=== PATIENT | male | born 1945 | race Caucasian/White ===

== ENCOUNTER 2018-04-07 13:44 | Emergency (ER) | payer MEDICARE ==
--- OUTSIDE RECORDS SUMMARY | 2018-04-07 14:06 | XMS REPORT | Continuity of Care Document ---
:1945 External Reference #:[id number] Author Name Fernandez Alexandre M.D. Address [address] [place] [address] [address] [place] [address] Care Team Providers Name Role Phone HCP given Primary Care Physician Unavailable Payers Type Date Identification Numbers Payment Provider Subscriber Effective: Policy Number: [id number] [employer] Ppo Kevin Tran 2015 Group Number: PPO [address] [address] PayID: [id number] ED Zambrano [id number] Advance Directives Description No Information Available Problems Date Description Provider Status Onset: 04/09/2004 Essential hypertension Active Onset: 08/07/2005 Benign essential hypertension Fernandez Alexandre M.D. Active Onset: 04/16/2012 Dysthymia Fernandez Alexandre M.D. Active Onset: 04/16/2012 Gastroesophageal reflux disease Fernandez Alexandre M.D. Active Onset: 04/16/2012 Restless legs Fernandez Alexandre M.D. Active Onset: 04/16/2012 Pure hypercholesterolemia Fernandez Alexandre M.D. Active Onset: 04/16/2012 Impaired fasting glycaemia Fernandez Alexandre M.D. Active Onset: 02/22/2015 Dysthymic disorder Fernandez Alexandre M.D. Active Onset: 01/28/2016 Anxiety state Fernandez Alexandre M.D. Active Family History Date Family Member(s) Problem(s) Comments General 1 son of Cxs from DM/CRF at age 41 (05/03). : (age 68 Years) Father due to [place] Mother High Blood Pressure : (2009) (age 92 Mother due to Natural Causes Years) Number of Children 2 sons and 1 daughter Number of Siblings Siblings: 1 sister. Social History Type Date Description Comments Sex Unknown Education Highest level of education completed is 12th grade Marital Status Patient is . Lives w/ his girlfriend. Employment Not currently working, voluntary lay off at [employer]. Tobacco Use Start: Unknown End: Former Cigarette Smoker quit ~1992 (in his Unknown mid 40s); he had been smoking almost 2ppd for the last 2-3yrs; prior to that was smoking at least 1ppd; started ~age 15 Smoking Status Reviewed: 04/17/14 Former Cigarette Smoker quit ~1992 (in his mid 40s); he had been smoking almost 2ppd for the last 2-3yrs; prior to that was smoking at least 1ppd; started ~age 15 ETOH Use Currently consumes Drinks alcohol daily alcohol Recreational Drug Use Denies Drug Use Sun Exposure Moderate amount of sun exposure. Does not use sunscreen Allergies, Adverse Reactions, Alerts Description No Known Drug Allergies Medications Medication Date Status Form Strength Qnty SIG Indications Ordering Provider Gabapentin 04/03/ Active Capsules 300mg 90cap 1 pill F41.9 co2017 s dianne then Fernandez, 1 pill twice M.D. daily for 1 day then 1 pill 3x/day; for restlessness and anxiety Buspirone HCL 1030/ Active Tablets 15mg take 05/29 F41.9 2017 tablet by Fernandez, mouth 2x/day M.D. for anxiety Esomeprazole 10/30/ Active Capsules 40mg 90cap take one K21.9 Silcoff, Magnesium 2017 s capsule by Fernandez, mouth every M.D. morning for acid reflux Ketoconazole 04/30/ Active Shampoo 2% 120ml use 3 times a L21.9 2016 week to Fernandez, start, leave M.D. on 5-10min then rinse off; taper down as directed; for flaky rash on face Alprazolam ER 1030/ Active Tablets ER 1mg 30tab 1 by mouth in F41.9 Silco2014 24HR s the morning Fernandez, if needed for M.D. anxiety Bupropion HCL 05/18/ Active Tablets ER 150mg 90tab Take 3 F34.1 Silcoff , ER (XL) 2013 24HR s Tablets By Fernandez, Mouth Every M.D. Morning For Mood F41.9 Lisinopril-Hydrochlorothiazide 04/16/2014 Active Tablets 20-25mg 45tabs take 1/2 I10 Silcoff, tablet by Fernandez, mouth M.D. every morning for high blood pressure Escitalopram Oxalate 07/14/2012 Active Tablets 20mg 90tabs take one F34. Silcoff, tablet by 1 Fernandez, mouth M.D. every day, for mood Ropinirole HCL 06/13/2012 Active Tablets 0.25mg 120tabs take 1 or G25. Silcoff, 2 tablets 81 Fernandez, in the M.D. evening for restless legs. may repeat 4-6 hours later. Simvastatin 04/10/2011 Active Tablets 40mg 90tabs take one E78. Silcoff , tablet by 00 Fernandez, mouth at M.D. bedtime to reduce blood fats Vitamin D3 08/03/2010 Active Tablets 1000Unit 1 pill 268. Silcoff, daily (to 9 Fernandez, start M.D. when completin g the Rx vitamin D supp 50 000u qod) Buspirone HCL 03/25/2018 Hx Tablets 15mg take 1 F41. Silcoff, - tablet by 9 Fernandez, 03/26/2018 mouth M.D. every morning; for anxiety Aripiprazole 02/26/2018 Hx Tablets 2mg 60tabs 2 tablets F34. Silcoff, - by mouth 1 Fernandez, 03/12/2018 every day M.D. x1wk then decrease to 1 tablet daily for 1 week then stop it if symptoms no worse; for mood Buspirone HCL 12/31/2017 Hx Tablets 15mg 270tabs take 1 F41. Silcoff, - tablet by 9 Fernandez, 03/25/2018 mouth M.D. 3x/day for anxiety Buspirone HCL 11/07/2017 Hx Tablets 15mg 180tabs take 1 F41. Sopchak, - tablet by 9 Yong, 12/31/2017 mouth D.O. twice daily for anxiety Shingrix 08/31/2017 Hx Suspensi 50mcg 2units administe Z23 Bettie - on Rec r 2 doses Fernandez, 12/09/2017 as M.DLynette directed, per cdc guideline s Doxycycline Monohydrate 03/27/2017 Hx Tablets 100mg 2tabs 2 tabs by Bettie - mouth one Fernandez, 03/28/2017 time for M.D. lyme disease preventio n after a tick bite Aripiprazole 02/27/2017 Hx Tablets 2mg 90tabs Take F34. Bettie - Three 1 Fernandez, 02/26/2018 Tablets M.D. By Mouth Every Day For Mood Aripiprazole 08/04/2015 Hx Tablets 2mg 60tabs 2 by F34. Bettie, - mouth 1 Fernandez, 02/27/2017 every day M.D. for mood Aripiprazole 03/05/2015 Hx Tablets 2mg 60tabs 1 by F34. Aidacoalbaro, - mouth 1 Fernandez, 08/04/2015 every day M.D. for mood; increase to 2 pills daily after 1 week if needed Nexium 02/26/2015 Hx Capsules 40mg 90caps take one K21. Burt Alexandre DR capsule Fernandez, 03/26/2018 by mouth M.D. every morning for acid reflux Omeprazole 02/22/2015 Hx Capsules 40mg 90caps [address] mouth Fernandez, 02/26/2015 every M.D. morning for acid reflux Buspirone HCL 02/02/2015 Hx Tablets 10mg 180tabs Take One F41. Bettie, - Tablet By Fernandez, 11/07/2017 Mouth M.D. Twice A Day For Anxiety Buspirone HCL 11/30/2014 Hx Tablets 5mg 120tabs 1.5 pill 300. Adiacoalbaro, - by mouth 00 Fernandez, 02/02/2015 twice a M.D. day for 2wks then increase to 2 pills 2x/day; for anxiety Buspirone HCL 10/08/2014 Hx Tablets 5mg 60tabs 1 by 300. Grover, - mouth 00 Yong, 11/30/2014 twice a D.O. day Cytomel 10/02/2014 Hx Tablets 25mcg 30tabs 1/2 F41. Bettie, - tablet 9 Fernandez, 03/26/2015 (12.5mg) M.D. by mouth daily Methylphenidate HCL ER (CD) 09/30/2014 Hx Capsules 20mg 30caps 1 by 300. Bettie, - ER mouth 4 Fernandez, 10/02/2014 every M.D. morning for mood Liothyronine Sodium 09/28/2014 Hx Tablets 25mcg 30tabs 1/2 tab 300. Adiacoff, - by mouth 4 Fernandez, 09/30/2014 every M.D. morning for mood Abilify 09/25/2014 Hx Tablets 2mg 30tabs 1 by 300. Silcoff, - mouth 4 Fernandez, 09/28/2014 every day M.D. for mood PT For Right Shoulder Pain 09/11/2014 Hx evaluate 719. Adiacoalbaro, - and 41 Fernandez, 02/01/2015 treat, M.D. modalitie s as needed, instruct in hep; (given steroid inj today to long head of biceps) Alprazolam ER 06/08/2014 Hx Tablets 1mg 60tabs 1 by F41. Adiacoff, - ER 24HR mouth 9 Fernandez, 03/26/2015 every M.D. morning for anxiety; if not adequatel y effective increase to 2 pills every morning Alprazolam 04/17/2014 Hx Tablets 1mg 30tabs 1 po qam 300. Silcoff, - ER 24HR for 00 Fernandez, 06/08/2014 anxiety; M.D. if not adequatel y effective increase to 2 pills Qam Omeprazole 09/15/2013 Hx Capsules 20mg 90caps take [address] capsule 9 Fernandez, 02/26/2015 daily as M.D. needed for acid reflux Lisinopril/Hydrochlorothiazide 04/18/2013 Hx Tablets 20-25mg 90tabs Take 1 401. Bettie, - Tablet 1 Fernandez, 04/16/2014 Every M.D. Morning For High Blood Pressure. Doxycycline Hyclate 03/11/2013 Hx Capsules 100mg 2caps 2 cap po E906 Slim, - x 1. .4 Roopa CISNEROS 03/12/2013 avoid sun /use sunscreen Doxycycline Hyclate 10/31/2012 Hx Capsules 100mg 2caps 2 cap po E906 Slim, - x 1. .4 Roopa CISNEROS 11/01/2012 avoid sun /use sunscreen Omeprazole 09/09/2012 Hx Capsules 20mg 90caps take [address] capsule 81 Fernandez, 03/11/2013 daily as M.D. needed for acid reflux Amoxicillin/Potassium 04/29/2012 Hx Tablets 875-125m 20tabs 1 by 789. Bettie Clavulanate - g mouth 00 Fernandez, 05/13/2012 twice a M.D. day for 10 days; start this only if you start experienc ing considera isabel worse abdominal pain Amoxicillin/Clavulanate 01/09/2012 Hx Tablets 875-125m 20tabs 1 by 562. Silcoff, Potassium - g mouth 11 Fernandez, 01/19/2012 twice a M.D. day for abdominal pain/dive rticuliti s Omeprazole 12/28/2011 Hx Tablets 20mg 0tabs [address] daily as 81 MD Jason 04/15/2012 needed for acid reflux Amoxicillin/Clavulanate 11/24/2011 Hx Tablets 875-125m 14tabs 1 by 562. Silcoff, Potassium - g mouth 11 Fernandez, 12/01/2011 every 12 M.D. hours for diverticu litis Ciprofloxacin HCL 11/17/2011 Hx Tablets 500mg 20tabs 1 by 562. Silcoff, - mouth 11 Fernandez, 11/24/2011 twice a M.D. day Metronidazole 11/17/2011 Hx Tablets 500mg 40tabs 1 by 562. Adiacoff, - mouth Fernandez, 11/24/2011 four M.D. times a day for diverticu litis Pantoprazole Sodium 10/02/2011 Hx Tablets 40mg 30tabs take [address] tablet by 8 Fernandez, 12/02/2011 mouth M.D. every day for acid reflux 787.02 530.81 Mupirocin 08/25/2011 - Hx Ointment 2% 22gm apply to 782.1 Bettie 09/29/2011 affected area Justin Presley on right cheek 4x/day Omeprazole 07/03/2011 - Hx Capsules DR 40mg 30caps 1 by mouth 536.8 Bettie, 10/02/2011 every day for Justin Presley acid reflux 787.02 530.81 Bupropion HCL 09/20/2010 - Hx Tablets ER 300mg 30tabs take 1 300.4 CHILANGO Alexandre 05/18/2014 24HR tablet by Justin Presley mouth once daily In The Morning 300.00 Lisinopril/Hydrochlorothiazide 04/05/2010 Hx Tablets 20-25mg 90tabs take 1 401.1 Burt Alexandre 04/18/2013 every M.D. morning for high blood pressure Requip 12/03/2009 Hx Tablets 0.25mg 120tabs 1-2 po in 333.94 Silcoff, - evening Fernandez, 06/13/2012 for M.D. restless legs, may repeat 4-6hrs later Bupropion HCL 05/15/2009 Hx Tablets 300mg 30tabs 1 po qam 300.4 Silcoff , - ER 24HR Fernandez, 09/20/2010 M.D. 300.00 Alprazolam 04/21/2009 - Hx Tablets ER 1mg 30tabs 1 po qam for 300.00 Silcoff, 08/02/2010 24HR anxiety; if Fernandez, not M.D. adequately effective increase to 2 pills Qam Clonazepam 04/19/2009 - Hx Tablets 0.5mg 30tabs 1/2-1 po tid 787.02 Silcoff, 05/03/2009 prn for Fernandez, anxiety and M.D. nausea; this medication is sedating; avoid driving while on this med Bupropion HCL 04/09/2009 - Hx Tablets ER 150mg 30tabs 1 po qam 300.4 Silcoff, 05/15/2009 24HR Justin Presley Vitamin D 03/14/2009 - Hx Capsules [id number] 30caps one daily for 268.9 Silcoff, 08/02/2010 nit one month, Fernandez, then q 2 days M.DLynette for one mo, then weekly Aciphex 03/04/2009 - Hx Tablets DR 20mg 30tabs 1 po qd for 530.81 Silcoff, 01/31/2010 acid reflux Justin Presley 536.8 Aciphex 12/28/2008 - Hx Tablets DR 20mg 9samples 1 po qd 536.8 Silcoff, 12/31/2008 Justin Presley Clarithromycin 11/26/2008 - Hx 250mg 20units 1 po bid 466.0 Mane 11/26/2008 until gone Jon Herrera M.D. Tessalon Thalia 11/26/2008 - Hx Capsules 100mg 30caps 1 q4h prn 786.2 Mane 12/06/2008 cough Jon Herrera M.D. PT For Right 11/25/2007 - Hx evaluate and 719.41 Silcoff, Shoulder Pain 06/15/2008 treatFernandez modalities M.D. prn, instruct in hep Lexapro 09/10/2006 - Hx Tabs 20mg 30tabs take 1 tablet 300.4 Silcoff, 08/02/2010 by mouth once Fernandez, daily M.D. Lexapro 09/10/2006 - Hx Tablets 20mg 90tabs take 1 tablet 300.4 Silcoff , 07/14/2012 by mouth once Fernandez, daily M.D. Lexapro 08/11/2005 - Hx Tablets 10mg 90tabs 1 po qd 300.4 Silcoff, 09/10/2006 Justin Presley Viagra 06/30/2005 - Hx Tablets 50mg 6Sample 1-2 po qd prn 607.84 Silcoff, 03/08/2009 as directed. Justin Presley Max: 1 dose/day, not to be used within 24hrs of using Levitra Levitra 06/30/2005 - Hx Tablets 10mg 6Sample 1 pill daily 607.84 Silcoff, 03/08/2009 as needed. katarzyna Presley increase M.DLynette to 2 pills/dose if 1 pill is ineffective max 1 dose/day Phenergan 10/17/2004 - Hx Tablets 25mg 20tabs 1/2-1 po q4h 536.8 Silcoff, 12/19/2004 prn for Fernandez nausea Justin Aciphex 10/11/2004 - Hx Tablets 20mg 15Sample 1 po qd 536.8 Silcoff, 10/26/2004 Justin Presley Oxaprozin 09/09/2004 - Hx Tablets 600mg 60tabs 2 po qd prn 726.71 Silcoff, 10/17/2004 for pain Justin Presley Lisinopril & 03/10/2004 - Hx Tablets 20mg;2 90tabs 1 tab qd for 401.1 Silcoff, HCTZ 04/05/2010 5 mg high blood Fernandez pressure Justin Flexeril 03/03/2004 - Hx Tablets 10mg 30tabs 1 PO tid klepack 06/30/2005 DO Not Operate Heavy Equipment While On Meds Zocor 06/30/2003 - Hx Tablets 40mg 90tabs 1 po qd hs to 272.0 Silcoff, 04/10/2011 reduce blood tavo Presley M.D. Lisinopril & 06/10/2003 - Hx Tablets 10mg;1 90tabs /2 Or 1 po Yuriy Alexa HCTZ 09/09/2004 2.5 mg qd For Blood Hans Olvera M.D. Naproxen 01/20/2003 - Hx Tablets 500mg 28tabs 1 po bid For Silcoff, 06/08/2003 Neck Pain. Jean Presley With Justin Food Zoloft 01/12/2003 - Hx Tablets 100mg 90tabs 1 po qam to 300.4 Silcoff, 08/11/2005 stabilize lindsay Presley M.D. Aleve - Hx Tablets 220mg 2 po bid prn Unknown 08/01/2009 for pain Medications Administered in Office Medication Date Status Form Strength Qnty SIG Indications Ordering Provider injection, Administered Injection Silcoff, kenalog, 10 mg 015 Justin Presley SC/Im Administered Injection Silcoff, Injections 015 Justin Presley Immunizations CPT Code Status Date Vaccine Lot # 56705 Given 01/29/2018 Influenza Vaccine Split Virus Preservative Free Im [id number] Use 41108 Given 02/27/2017 Influenza Vaccine Split Virus Preservative Free Im [id number] Use 85962 Given 01/28/2016 Influenza Vaccine Split Virus Preservative Free Im [id number] Use 58105 Given 06/28/2015 Influenza Vaccine Split Virus Preservative Free Im [id number] Use 51208 Given 11/30/2014 Prevnar 13 [id number] 43752 Given 09/29/2014 Adacel or Boostrix, TDaP 04533 Given 02/10/2014 Influenza Virus Vaccine, Quadrivalent, Split, Preservative Free 78739 Given 03/11/2013 Flu, Split Virus 3Yrs [id number] 03074 Given 04/05/2012 Flu, Split Virus 3Yrs [id number] 13716 Given 01/09/2012 Zostavax [id number] 72903 Given 10/02/2011 Pneumococcal Immunization [id number] 44939 Given 08/17/2010 Adacel or Boostrix, TDaP [id number] 15545 Given 04/27/2005 Td Immunization 28328 Given 03/01/2003 Flu, Split Virus 3Yrs 56000 Given 02/25/1982 Td Immunization 30534 Refused 05/15/2007 Zostavax Vital Signs Date Vital Result Comment 04/03/2018 4:57pm BP Systolic 120 mmHg BP Diastolic 76 mmHg 03/26/2018 10:07am BP Systolic 112 mmHg BP Diastolic 80 mmHg Weight 202.00 lb with shoes 02/26/2018 1:35pm BP Systolic 122 mmHg BP Diastolic 80 mmHg Weight 201.00 lb with shoes 01/29/2018 11:23am BP Systolic 120 mmHg BP Diastolic 80 mmHg Weight 197.00 lb with shoes 12/31/2017 11:08am BP Systolic 116 mmHg BP Diastolic 70 mmHg Height 67.25 inches 5'7.25" Weight 196.00 lb BMI (Body Mass Index) 30.5 kg/m2 11/07/2017 2:16pm BP Systolic 124 mmHg BP Diastolic 76 mmHg Weight 200.00 lb w/shoes 08/31/2017 9:59am BP Systolic 112 mmHg BP Diastolic 72 mmHg Height 68 inches 5'8" Weight 201.00 lb BMI (Body Mass Index) 30.6 kg/m2 04/30/2017 10:16am BP Systolic 120 mmHg BP Diastolic 74 mmHg Weight 204.00 lb w/shoes 04/04/2017 2:47pm BP Systolic 124 mmHg BP Diastolic 78 mmHg Weight 206.00 lb w/shoes 02/27/2017 10:47am BP Systolic 125 mmHg BP Diastolic 80 mmHg Height 68 inches 5'8" with shoes Weight 208.00 lb with shoes BMI (Body Mass Index) 31.6 kg/m2 08/28/2016 11:01am BP Systolic 120 mmHg BP Diastolic 80 mmHg Weight 206.00 lb w/shoes 04/28/2016 1:02pm BP Systolic 118 mmHg BP Diastolic 76 mmHg Height 68 inches 5'8" Weight 206.00 lb BMI (Body Mass Index) 31.3 kg/m2 01/28/2016 11:12am BP Systolic 118 mmHg BP Diastolic 72 mmHg Weight 201.00 lb w/shoes 10/27/2015 10:50am BP Systolic 120 mmHg BP Diastolic 70 mmHg Heart Rate 54 /min reg Respiratory Rate 12 /min not laboured Height 68.25 inches 5'8.25" with shoes Weight 200.00 lb with shoes BMI (Body Mass Index) 30.2 kg/m2 08/25/2015 9:26am BP Systolic 114 mmHg BP Diastolic 76 mmHg 08/04/2015 5:12pm BP Systolic 116 mmHg BP Diastolic 76 mmHg Weight 197.00 lb 06/28/2015 9:14am BP Systolic 122 mmHg BP Diastolic 70 mmHg Weight 192.00 lb with shoes 03/26/2015 10:50am BP Systolic 124 mmHg BP Diastolic 68 mmHg Weight 189.00 lb 03/15/2015 12:52pm BP Systolic 128 mmHg BP Diastolic 86 mmHg 03/05/2015 11:52am BP Systolic 130 mmHg BP Diastolic 80 mmHg Weight 187.00 lb 02/22/2015 4:30pm BP Systolic 118 mmHg BP Diastolic 78 mmHg Weight 186.00 lb 02/02/2015 9:46am BP Systolic 120 mmHg BP Diastolic 80 mmHg Weight 189.00 lb with boots 11/30/2014 9:31am BP Systolic 120 mmHg BP Diastolic 72 mmHg Weight 186.00 lb shoes on 10/16/2014 8:47am BP Systolic 120 mmHg BP Diastolic 70 mmHg Weight 186.00 lb W/Shoes 10/12/2014 10:31am BP Systolic 120 mmHg BP Diastolic 70 mmHg 10/08/2014 12:01pm BP Systolic 120 mmHg BP Diastolic 73 mmHg Heart Rate 73 /min Weight 185.00 lb w/shoes 10/02/2014 11:36am BP Systolic 130 mmHg BP Diastolic 88 mmHg 09/30/2014 11:12am BP Systolic 120 mmHg BP Diastolic 78 mmHg 09/25/2014 2:58pm BP Systolic 136 mmHg BP Diastolic 88 mmHg Height 68.5 inches 5'8.50" shoes on Weight 190.00 lb shoes on BMI (Body Mass Index) 28.5 kg/m2 09/11/2014 11:55am BP Systolic 136 mmHg BP Diastolic 84 mmHg Weight 186.00 lb w/shoes 06/29/2014 10:00am BP Systolic 120 mmHg BP Diastolic 68 mmHg Weight 187.00 lb W/Heavy Snow Boots 05/18/2014 11:22am BP Systolic 132 mmHg BP Diastolic 90 mmHg Weight 190.00 lb boots on 04/17/2014 5:25pm BP Systolic 100 mmHg BP Diastolic 60 mmHg BP Systolic Recheck 128 mmHg R arm sitting BP Diastolic Recheck 74 mmHg R arm sitting Height 67 inches 5'7" Weight 175.00 lb BMI (Body Mass Index) 27.4 kg/m2 12/02/2013 3:58pm BP Systolic 114 mmHg BP Diastolic 70 mmHg Weight 185.00 lb 10/17/2013 10:48am BP Systolic 110 mmHg BP Diastolic 78 mmHg BP Systolic Recheck 120 mmHg R arm sitting BP Diastolic Recheck 70 mmHg R arm sitting Height 68 inches 5'8" w/ shoes Weight 179.00 lb BMI (Body Mass Index) 27.2 kg/m2 04/18/2013 10:29am BP Systolic 102 mmHg BP Diastolic 66 mmHg Height 68 inches 5'8" Weight 179.00 lb BMI (Body Mass Index) 27.2 kg/m2 03/11/2013 12:16pm BP Systolic 108 mmHg BP Diastolic 70 mmHg Body Temperature 98.4 F Weight 182.00 lb 10/31/2012 3:38pm BP Systolic 112 mmHg BP Diastolic 70 mmHg Body Temperature 97.9 F 10/14/2012 8:54am BP Systolic 120 mmHg BP Diastolic 78 mmHg Height 68 inches 5'8" Weight 203.00 lb BMI (Body Mass Index) 30.9 kg/m2 04/29/2012 3:00pm BP Systolic 120 mmHg BP Diastolic 82 mmHg Body Temperature 98.2 F Weight 204.00 lb Last Menstrual Period 0 04/16/2012 10:12am BP Systolic 106 mmHg BP Diastolic 76 mmHg Weight 198.00 lb Last Menstrual Period 0 04/05/2012 11:51am BP Systolic 125 mmHg BP Diastolic 73 mmHg Heart Rate 53 /min Respiratory Rate 12 /min not laboured Body Temperature 98.6 F Weight 199.00 lb Last Menstrual Period 0 01/09/2012 9:12am BP Systolic 110 mmHg BP Diastolic 78 mmHg Body Temperature 98.0 F Height 68 inches 5'8" Weight 198.00 lb BMI (Body Mass Index) 30.1 kg/m2 Last Menstrual Period 0 11/24/2011 11:34am BP Systolic 98 mmHg BP Diastolic 70 mmHg Body Temperature 98.4 F Weight 201.00 lb w/shoes 11/17/2011 12:09pm BP Systolic 100 mmHg BP Diastolic 74 mmHg Body Temperature 99.1 F Weight 208.00 lb heavy boots 10/02/2011 1:09pm BP Systolic 118 mmHg BP Diastolic 70 mmHg Weight 205.00 lb 08/25/2011 9:12am BP Systolic 110 mmHg BP Diastolic 74 mmHg Weight 205.00 lb Last Menstrual Period 0 07/03/2011 4:34pm BP Systolic 120 mmHg BP Diastolic 80 mmHg Height 67.50 inches 5'7.50" Weight 201.00 lb BMI (Body Mass Index) 31.0 kg/m2 11/02/2010 11:18am BP Systolic 98 mmHg BP Diastolic 60 mmHg 10/12/2010 10:57am BP Systolic 112 mmHg BP Diastolic 70 mmHg Weight 198.00 lb 09/23/2010 11:39am BP Systolic 114 mmHg BP Diastolic 68 mmHg Weight 199.00 lb 09/05/2010 1:12pm BP Systolic 128 mmHg BP Diastolic 86 mmHg 08/17/2010 9:18am BP Systolic 112 mmHg BP Diastolic 68 mmHg Weight 200.00 lb 08/03/2010 11:07am BP Systolic 114 mmHg R arm sitting BP Diastolic 72 mmHg R arm sitting Heart Rate 66 /min reg Weight 200.00 lb 06/24/2010 9:29am BP Systolic 110 mmHg BP Diastolic 76 mmHg Height 67.50 inches 5'7.50" Weight 199.00 lb BMI (Body Mass Index) 30.7 kg/m2 Last Menstrual Period 0 04/05/2010 10:11am BP Systolic 110 mmHg BP Diastolic 74 mmHg Weight 198.00 lb 12/20/2009 1:15pm BP Systolic 100 mmHg BP Diastolic 66 mmHg Weight 202.00 lb w/heavy boots 12/03/2009 10:27am BP Systolic 118 mmHg BP Diastolic 80 mmHg Height 67.50 inches 5'7.50" Weight 198.00 lb BMI (Body Mass Index) 30.6 kg/m2 Last Menstrual Period 0 08/02/2009 10:49am BP Systolic 108 mmHg BP Diastolic 80 mmHg Weight 199.00 lb 06/18/2009 8:57am BP Systolic 120 mmHg BP Diastolic 82 mmHg Weight 204.00 lb Last Menstrual Period 0 05/15/2009 10:48am BP Systolic 120 mmHg BP Diastolic 78 mmHg Weight 207.00 lb 05/03/2009 10:58am BP Systolic 147 mmHg BP Diastolic 82 mmHg Heart Rate 67 /min 04/21/2009 2:50pm BP Systolic 132 mmHg BP Diastolic 84 mmHg 04/19/2009 9:34am BP Systolic 122 mmHg BP Diastolic 80 mmHg Weight 207.00 lb Last Menstrual Period 0 04/09/2009 11:07am BP Systolic 108 mmHg BP Diastolic 80 mmHg Weight 210.00 lb Last Menstrual Period 0 03/09/2009 1:49pm BP Systolic 140 mmHg BP Diastolic 84 mmHg Weight 213.00 lb 12/31/2008 1:26pm BP Systolic 148 mmHg BP Diastolic 100 mmHg Heart Rate 80 /min Respiratory Rate 16 /min 12/28/2008 5:04pm BP Systolic 128 mmHg BP Diastolic 80 mmHg Body Temperature 98.4 F Weight 213.00 lb Last Menstrual Period 0 12/16/2008 9:00am BP Systolic 104 mmHg BP Diastolic 74 mmHg Weight 215.50 lb 11/26/2008 4:04pm BP Systolic 118 mmHg BP Diastolic 84 mmHg Body Temperature 98.3 F Weight 216.00 lb 09/04/2008 4:07pm BP Systolic 130 mmHg BP Diastolic 80 mmHg Body Temperature 98.2 F Weight 210.00 lb Last Menstrual Period 0 06/23/2008 5:11pm BP Systolic 132 mmHg BP Diastolic 92 mmHg Weight 206.00 lb 06/16/2008 4:37pm BP Systolic 130 mmHg BP Diastolic 78 mmHg Heart Rate 56 /min reg Weight 213.00 lb 11/25/2007 5:08pm BP Systolic 120 mmHg BP Diastolic 78 mmHg Height 68 inches 5'8" Weight 215.00 lb BMI (Body Mass Index) 32.7 kg/m2 05/15/2007 4:05pm BP Systolic 120 mmHg BP Diastolic 84 mmHg Height 68 inches 5'8" Weight 210.00 lb BMI (Body Mass Index) 31.9 kg/m2 Last Menstrual Period 0 10/16/2006 2:35pm BP Systolic 114 mmHg BP Diastolic 68 mmHg Height 68 inches 5'8" Weight 211.00 lb BMI (Body Mass Index) 32.1 kg/m2 09/10/2006 2:24pm BP Systolic 140 mmHg BP Diastolic 88 mmHg Height 68 inches 5'8" Weight 205.00 lb BMI (Body Mass Index) 31.2 kg/m2 03/21/2006 4:45pm BP Systolic 110 mmHg BP Diastolic 80 mmHg Height 68 inches 5'8" Weight 211.00 lb BMI (Body Mass Index) 32.1 kg/m2 Last Menstrual Period 0 09/20/2005 5:02pm BP Systolic 105 mmHg BP Diastolic 70 mmHg Height 68 inches 5'8" Weight 211.00 lb BMI (Body Mass Index) 32.1 kg/m2 08/07/2005 1:29pm BP Systolic 116 mmHg R arm sitting BP Diastolic 70 mmHg R arm sitting BP Systolic Recheck 118 mmHg R arm standing BP Diastolic Recheck 72 mmHg R arm standing Heart Rate 68 /min reg Respiratory Rate 12 /min not laboured Height 68 inches 5'8" 08/07/2005 1:11pm BP Systolic 104 mmHg BP Diastolic 70 mmHg Height 68 inches 5'8" Weight 210.00 lb BMI (Body Mass Index) 31.9 kg/m2 06/30/2005 2:50pm BP Systolic 104 mmHg BP Diastolic 72 mmHg Height 68 inches 5'8" Weight 211.00 lb BMI (Body Mass Index) 32.1 kg/m2 12/19/2004 4:04pm BP Systolic 120 mmHg BP Diastolic 86 mmHg Height 68 inches 5'8" Weight 215.00 lb BMI (Body Mass Index) 32.7 kg/m2 Last Menstrual Period 0 10/26/2004 4:58pm BP Systolic 114 mmHg lg cuff BP Diastolic 74 mmHg lg cuff Height 68 inches 5'8" Weight 211.00 lb BMI (Body Mass Index) 32.1 kg/m2 10/17/2004 4:08pm BP Systolic 120 mmHg BP Diastolic 80 mmHg Height 68 inches 5'8" Weight 216.00 lb BMI (Body Mass Index) 32.8 kg/m2 10/11/2004 4:27pm Height 68 inches 5'8" Weight 216.00 lb BMI (Body Mass Index) 32.8 kg/m2 09/09/2004 3:53pm BP Systolic 134 mmHg BP Diastolic 86 mmHg Height 68 inches 5'8" Weight 212.00 lb BMI (Body Mass Index) 32.2 kg/m2 03/10/2004 10:51am Height 68 inches 5'8" Weight 211.00 lb BMI (Body Mass Index) 32.1 kg/m2 03/03/2004 4:25pm Body Temperature 98.3 F 06/08/2003 11:55am BP Systolic 150 mmHg r arm BP Diastolic 90 mmHg r arm Weight 216.00 lb boots on Results Test Date Facility Test Result H/L Range Note Urine Micro Inhouse 02/27/2018 In House Ua WBC - 1 Ua RBC - Ua Casts - Ua Epi - Ua Other - Ua Glucose - Ua Bilirubin - Ua Ketones - Ua Specific [place] 1.005 Ua Blood - Ua PH 6.0 Ua Protein - Ua Urobilinogen - Ua Nitrite - Ua Leukocytes - Laboratory test 08/31/2017 In House Hemoglobin A1c 5.5 finding Basic Metabolic 08/21/2017 [facility] Sodium 138 mmol/L Low 139-145 Panel [phone] Potassium 4.1 mmol/L N 3.5-5.0 Chloride 97 mmol/L Low 101-111 Co2 Carbon Dioxide 30 mmol/L N 22-32 Anion Gap 11 mmol/L N 2-11 Glucose 94 mg/dL N 70-100 Blood Urea Nitrogen 10 mg/dL N 6-24 Creatinine 1.07 mg/dL N 0.67-1.17 BUN/Creatinine Ratio 9.3 N 8-20 Calcium 9.5 mg/dL N 8.6-10.3 Egfr Non- 68.1 >60 Egfr 87.6 >60 2 Laboratory test finding 08/21/2017 [facility] 12 U/L N 7-52 3 [phone] Lipid Profile 08/21/2017 [facility] Triglycerides 46 mg/dL 4 (Trig/Chol/HDL) [phone] Cholesterol 149 mg/dL 5 HDL Cholesterol 47.1 mg/dL 6 LDL Cholesterol 93 mg/dL 7 Urine Micro Inhouse 02/27/2017 In House Ua WBC - Ua RBC - Ua Casts - Ua Epi - Ua Other - Ua Glucose - Ua Bilirubin - Ua Ketones - Ua Specific [place] 1.005 Ua Blood - Ua PH 5.0 Ua Protein - Ua Urobilinogen - Ua Nitrite - Ua Leukocytes - Laboratory test finding 08/28/2016 In House Hemoglobin A1c 5.6 Lipid Profile 08/16/2016 [facility] Triglycerides 139 mg/dL N 8 (Trig/Chol/HDL) [phone] Cholesterol 169 mg/dL N 9 HDL Cholesterol 43.0 mg/dL N 10 LDL Cholesterol 98 mg/dL N 11 Laboratory test finding 08/16/2016 [facility] (SGPT) 16 U/L N 7- 52 12 [phone] Basic Metabolic Panel 08/16/2016 [facility] Sodium 136 mmol/L N 133- 145 [phone] Potassium 4.2 mmol/L N 3.5-5.0 Chloride 97 mmol/L Low 101-111 Co2 Carbon Dioxide 33 mmol/L High 22-32 Anion Gap 6 mmol/L N 2-11 Glucose 99 mg/dL N 70-100 Blood Urea Nitrogen 8 mg/dL N 6-24 Creatinine 1.01 mg/dL N 0.67-1.17 BUN/Creatinine Ratio 7.9 Low 8-20 Calcium 9.7 mg/dL N 8.6-10.3 Egfr Non- 73.2 N >60 Egfr 94.2 N >60 13 Laboratory test 10/27/2015 In House Hemoglobin A1c 5.9 finding Basic Metabolic Panel 10/20/2015 [facility] Sodium 137 mmol/L N 133- 145 [phone] Potassium 4.0 mmol/L N 3.5-5.0 Chloride 100 mmol/L Low 101-111 Co2 Carbon Dioxide 31 mmol/L N 22-32 Anion Gap 6 mmol/L N 2-11 Glucose 96 mg/dL N 70-100 Blood Urea Nitrogen 16 mg/dL N 6-24 Creatinine 1.03 mg/dL N 0.67-1.17 BUN/Creatinine Ratio 15.5 N 8-20 Calcium 9.7 mg/dL N 8.6-10.3 Egfr Non- 71.6 N >60 Egfr 92.1 N >60 14 Laboratory test finding 10/20/2015 [facility] (SGPT) 18 U/L N 7- 52 15 [phone] Lipid Profile 10/20/2015 [facility] Triglycerides 68 mg/dL N 16 (Trig/Chol/HDL) [phone] Cholesterol 165 mg/dL N 17 HDL Cholesterol 47.2 mg/dL N 18 LDL Cholesterol 104 mg/dL N 19 Urine Micro Inhouse 06/28/2015 In House Ua WBC - Ua RBC - Ua Casts - Ua Epi - Ua Other - Ua Glucose - Ua Bilirubin - Ua Ketones - Ua Specific [place] 1.005 Ua Blood - Ua PH 6.0 Ua Protein - Ua Urobilinogen - Ua Nitrite - Ua Leukocytes - Laboratory test 10/16/2014 In House Hemoglobin A1c 5.8 finding Basic Metabolic 10/07/2014 [facility] Sodium 133 mmol/L N 133-145 20 Panel [phone] Potassium 4.3 mmol/L N 3.5-5.0 Chloride 96 mmol/L Low 101-111 Co2 Carbon Dioxide 32 mmol/L N 22-32 Anion Gap 5 mmol/L N 2-11 Glucose 105 mg/dL High 70-100 Blood Urea Nitrogen 8 mg/dL N 6-24 Creatinine 0.92 mg/dL N 0.67-1.17 BUN/Creatinine Ratio 8.7 N 8-20 Calcium 9.5 mg/dL N 8.6-10.3 Egfr Non- 81.8 N >60 Egfr 105.2 N >60 21 Lipid Profile (Trig/Chol/HDL) 10/07/2014 [facility] Triglycerides 64 mg /dL N 22 [phone] Cholesterol 142 mg/dL N 23 HDL Cholesterol 46.9 mg/dL N 24 LDL Cholesterol 82 mg/dL N 25 Laboratory test finding 10/07/2014 [facility] (SGPT) 21 U/L N 7- 52 26 [phone] TSH (Thyroid Stim Horm) 0.94 ?IU/mL N 0.34-5.60 27 Free T4 (Free Thyroxine) 0.65 ng/mL N 0.61-1.12 28 T3 Free 5.10 pg/mL High 2.5-3.9 29 Surgical Pathology 09/09/2014 [facility] S RUN DATE: 09/10/ <SEE 30 [phone] NOTE> Urine Micro Inhouse 05/18/2014 In House Ua WBC - Ua RBC - Ua Casts - Ua Epi - Ua Other - Ua Glucose - Ua Bilirubin - Ua Ketones - Ua Specific [place] 1.005 Ua Blood - Ua PH 7.5 Ua Protein - Ua Urobilinogen - Ua Nitrite - Ua Leukocytes - Laboratory test 10/17/2013 In House Hemoglobin A1c 5.6 finding Basic Metabolic Panel 10/09/2013 [facility] Sodium 133 mmol/L 133- 145 [phone] Potassium 3.8 mmol/L 3.7-5.6 Chloride 97 mmol/L Low 101-111 Co2 Carbon Dioxide 30 mmol/L 22-32 Anion Gap 6 mmol/L 2-11 Glucose 91 mg/dL 70-100 Blood Urea Nitrogen 7 mg/dL 6-24 Creatinine 0.94 mg/dL 0.67-1.17 BUN/Creatinine Ratio 7.4 Low 8-20 Calcium 9.4 mg/dL 8.6-10.3 Egfr Non- 80.0 >60 Egfr 102.9 >60 31 Laboratory test finding 10/09/2013 [facility] 20 U/L 7-52 32 [phone] Lipid Profile 10/09/2013 [facility] Triglycerides 70 mg/dL 33 (Trig/Chol/HDL) [phone] Cholesterol 144 mg/dL 34 HDL Cholesterol 42.9 mg/dL 35 LDL Cholesterol 87 mg/dL 36 Laboratory test finding 10/14/2012 In House Hemoglobin A1c 5.7 Urine Micro Inhouse 10/14/2012 In House Ua WBC - Ua RBC - Ua Casts - Ua Epi - Ua Other - Ua Glucose - Ua Bilirubin - Ua Ketones - Ua Specific [place] 1.005 Ua Blood - Ua PH 5.0 Ua Protein - Ua Urobilinogen - Ua Nitrite - Ua Leukocytes - Laboratory 07/08/2012 [facility] Hepatitis C Nonreactive Nonreactive 37 test finding [phone] Antibody Lipid Profile 07/08/2012 [facility] Triglycerides 76 mg/dL 40-200 (Trig/Chol/HD [phone]) Cholesterol 165 mg/dL Less than 200 HDL Cholesterol 48 mg/dL 40-60 38 Cholesterol/HDL Ratio 3.4 Average 1-4.44 LDL Cholesterol 101.8 mg/dL High Less Than 100 39 Laboratory test finding 07/08/2012 [facility] 29 U/L 14-54 40 [phone] Basic Metabolic Panel 07/08/2012 [facility] Sodium 136 mmol/L 133- 145 [phone] Potassium 4.5 mmol/L 3.5-5.0 Chloride 99 mmol/L Low 101-111 Co2 Carbon Dioxide 29.0 mmol/L 22-32 Anion Gap 8.0 mmol/L 2-11 Glucose 99 mg/dL 70-100 Blood Urea Nitrogen 15 mg/dL 6-24 Creatinine 1.10 mg/dL 0.50-1.40 BUN/Creatinine Ratio 13.6 8-20 Calcium 9.6 mg/dL 8.1-9.9 Egfr Non- 67.2 >60 Egfr 86.4 >60 41 Surgical 12/20/2011 [facility] Surgical 42 Pathology [phone] Pathology <SEE NOTE> Clotest 12/20/2011 [facility] 43 [phone] <SEE NOTE> Laboratory 07/05/2011 [facility] (SGPT) 23 U/L 17-6 test finding [phone] Lipid Profile 07/05/2011 [facility] Triglyceride 59 mg/dL 40-2 (Trig/Chol/HDL [phone] ) Cholesterol 137 mg/dL Less Than 200 44 High Density Lipoprotein 41 mg/dL 40-60 45 Cholesterol/HDL Ratio 3.34 AVERAGE 1-4.97 Low Density Lipoprotein 84 mg/dL Less Than 100 46 Basic Metabolic Panel 07/05/2011 [facility] Sodium 130 mmol/L Low 135 -145 [phone] Potassium 4.0 mmol/L 3.5-5.0 Chloride 95 mmol/L Low 101-111 Co2 (Carbon Dioxide) 30.0 mmol/L 22-32 Anion Gap 5.0 mmol/L 2-11 47 Glucose 93 mg/dL 70-100 BUN 14 mg/dL 6-24 Creatinine 1.1 mg/dL 0.50-1.40 One Over Creatinine 0.90 BUN/Creatinine Ratio 12.7 8-20 Calcium 9.3 mg/dL 8.1-9.9 eGFR Non- 67.4 > 60 eGFR 86.7 > 60 48 Laboratory test 07/03/2011 In House Hemoglobin A1c 5.8 finding Laboratory test 06/27/2010 [facility] Surgical --------- 49 finding [phone] Pathology ------- <SEE NOTE> Laboratory test 03/30/2010 [facility] Hemoglobin A1c 6.1 % High Less Than 50 finding [phone] 6.0 Alt (SGPT) 30 U/L 17-63 Lipid Profile 03/30/2010 [facility] Triglyceride 67 mg/dL 40-200 (Trig/Chol/HDL) [phone] Cholesterol 183 mg/dL Less Than 200 51 High Density Lipoprotein 47 mg/dL 40-60 52 Cholesterol/HDL Ratio 3.89 AVERAGE 1-4.97 Low Density Lipoprotein 123 mg/dL High Less Than 100 53 Basic Metabolic Panel 03/30/2010 [facility] Sodium 133 mmol/L Low 135 -145 [phone] Potassium 4.0 mmol/L 3.5-5.0 Chloride 99 mmol/L Low 101-111 Co2 (Carbon Dioxide) 29.0 mmol/L 22-32 Anion Gap 5.0 mmol/L 2-11 54 Glucose 96 mg/dL 70-100 55 BUN 14 mg/dL 6-24 Creatinine 1.00 mg/dL 0.50-1.40 One Over Creatinine 1.00 BUN/Creatinine Ratio 14.0 8-20 Calcium 9.2 mg/dL 8.1-9.9 eGFR Non- 80.2 > 60 eGFR 97.1 > 60 56 Ua Inhouse 06/18/2009 In House Ua Glucose - Ua Bilirubin - Ua Ketones - Ua Specific [place] 1.010 Ua Blood - Ua PH 6.5 Ua Protein - Ua Urobilinogen - Ua Nitrite - Ua Leukocytes - Urine Micro 06/18/2009 In House Urine Microscopic occ epi Inhouse Inhouse Basic Metabolic 06/10/2009 [facility] Sodium 135 mmol/L 135-145 Panel [phone] Potassium 4.1 mmol/L 3.5-5.0 Chloride 98 mmol/L Low 101-111 Co2 (Carbon Dioxide) 30.0 mmol/L 22-32 Anion Gap 7.0 mmol/L 2-11 57 Glucose 98 mg/dL 70-100 58 BUN 12 mg/dL 6-24 Creatinine 1.10 mg/dL 0.50-1.40 One Over Creatinine 0.90 BUN/Creatinine Ratio 10.9 8-20 Calcium 9.4 mg/dL 8.1-9.9 59 eGFR Non- 72.1 > 60 eGFR 87.2 > 60 60 Laboratory test finding 06/10/2009 [facility] (SGPT) 56 U/L 17- 63 [phone] Lipid Profile 06/10/2009 [facility] Triglyceride 71 mg/dL 40-200 (Trig/Chol/HDL) [phone] Cholesterol 146 mg/dL Less Than 200 61 High Density Lipoprotein 38 mg/dL Low 40-60 62 Cholesterol/HDL Ratio 3.84 AVERAGE 1-4.97 Low Density Lipoprotein 94 mg/dL Less Than 100 63 Laboratory test 03/09/2009 [facility] TSH 2.28 MIU/ML 0.34-5.60 finding [phone] Iron & Iron Binding 03/09/2009 [facility] Iron Total 118 g/dL 45- 182 Capacity [phone] Unsaturated Iron Binding 270 g/dL Total Iron Binding Capacity 388 g/dL 250-450 % Iron Saturation 30 % 15-55 Laboratory test 03/09/2009 [facility] Ferritin 706 NG/ML High 24-336 finding [phone] CBC With 03/09/2009 [facility] White Blood 7.0 CUMM 4.8-10.8 Electronic Diff [phone] Count Red Cell Count 4.57 CUMM Low 4.6-6.2 Hemoglobin 14.5 g/dL 14.0-18.0 Hematocrit 43 % 42-52 Mean Corpuscular Volume 93 um3 80-94 Mean Corpuscular Hemoglob 32 pg High 27-31 Mean Corpuscular HGB Cone 34 g/dL 32-36 Redcell Distribution WDTH 14 % 10.5-15 Platelet Count 198 CUMM 150-450 Mean Platelet Volume 8.5 um3 7.4-10.4 Gran % 69.7 % 38-83 Lymph % 22.6 % Low 25-47 Mononuclear % 7.0 % 1-9 Eosinophil % 0.4 % 0-6 Basophil % 0.3 % 0-2 Abs Lymphs 1.6 1.0-4.8 Abs Mononuclear 0.5 0-0.8 Absolute Neutrophil Count 4.9 1.5-7.7 Abs Eosinophils 0 0-0.6 Abs Basophils 0 0-0.2 Laboratory test finding 03/09/2009 [facility] Glucose 122 mg/dL High 70-100 64 [phone] CPK (Creatine Kinase) 198 U/L 0-200 Erythrocyte Sed Rate 8 MM/HR 0-20 Vitamin B12 329 pg/mL 180-914 Vitamin D, 25 03/09/2009 [facility] 25-Hydroxy Vitamin D2 <4.0 ng/mL () Hydroxy [phone] 25-Hydroxy Vitamin D3 20 ng/mL () 25-Hydroxy Vitamin D Total 20 ng/mL Abnormal () 65 Xray 12/28/2008 [facility] X-Ray, Chest, 2 Views NEG Ribs, Unilateral - 2 Views, LT NEG Basic Metabolic Panel 12/09/2008 [facility] Sodium 136 mmol/L 135- 145 [phone] Potassium 4.4 mmol/L 3.5-5.0 Chloride 100 mmol/L Low 101-111 Co2 (Carbon Dioxide) 29.0 mmol/L 22-32 Anion Gap 7.0 mmol/L 2-11 66 Glucose 112 mg/dL High 70-100 67 BUN 15 mg/dL 6-24 Creatinine 1.10 mg/dL 0.50-1.40 One Over Creatinine 0.90 BUN/Creatinine Ratio 13.6 8-20 Calcium 9.4 mg/dL 8.1-9.9 68 eGFR Non- 72.1 > 60 eGFR 87.2 > 60 69 Laboratory test finding 12/09/2008 [facility] Alt (SGPT) 33 U/L 17- 63 [phone] Lipid Profile 12/09/2008 [facility] Triglyceride 79 mg/dL 40-200 (Trig/Chol/HDL) [phone] Cholesterol 199 mg/dL Less Than 200 70 High Density Lipoprotein 40 mg/dL 40-60 71 Cholesterol/HDL Ratio 4.98 AVERAGE High 1-4.97 Low Density Lipoprotein 143 mg/dL High Less Than 100 72 Surgical Pathology 07/27/2008 [facility] Surgical Pathology Colon Polyps 73 [phone] Urine Micro 06/16/2008 In House Urine Microscopic - Inhouse Inhouse Ua Inhouse 06/16/2008 In House Ua Glucose - Ua Bilirubin - Ua Ketones - Ua Specific [place] 1.015 Ua Blood - Ua PH 6.5 Ua Protein tr Ua Urobilinogen - Ua Nitrite - Ua Leukocytes - Lipid Profile 11/27/2007 [facility] Triglyceride 183 mg/dL 40-200 (Trig/Chol/HDL) [phone] Cholesterol 190 mg/dL Less Than 200 74 High Density Lipoprotein 34 mg/dL Low 40-60 75 Cholesterol/HDL Ratio 5.59 AVERAGE High 1-4.97 Low Density Lipoprotein 119 mg/dL High Less Than 100 76 Laboratory test finding 11/27/2007 [facility] (SGPT) 30 U/L 17- 63 [phone] Basic Metabolic Panel 11/27/2007 [facility] Sodium 140 mmol/L 135- 145 [phone] Potassium 4.2 mmol/L 3.5-5.0 Chloride 105 mmol/L 101-111 Co2 (Carbon Dioxide) 27.0 mmol/L 22-32 Anion Gap 8.0 mmol/L 2-11 77 Glucose 84 mg/dL 70-105 BUN 12 mg/dL 6-24 Creatinine 0.9 mg/dL 0.5-1.4 One Over Creatinine 1.11 BUN/Creatinine Ratio 13.3 8-20 Calcium 9.1 mg/dL 8.1-9.9 78 Lipid Profile 03/28/2006 [facility] Cholesterol/HDL 4.17 1-4.97 (Trig/Chol/HDL) [phone] Ratio AVERAGE Cholesterol 175 mg/dL Less Than 200 79 Triglyceride 131 mg/dL 40-200 High Density Lipoprotein 42 mg/dL 40-60 Low Density Lipoprotein 107 mg/dL High Less Than 100 80 Laboratory test 03/28/2006 [facility] Alt (SGPT) 35 U/L 17-63 finding [phone] Basic Metabolic Panel 03/28/2006 [facility] Over Creatinine 0.83 [phone] Anion Gap 7.0 mmol/L 2-11 81 BUN 15 mg/dL 6-24 Calcium 9.0 mg/dL 8.7-10.2 Chloride 101 mmol/L 101-111 Co2 (Carbon Dioxide) 27.0 mmol/L 22-32 Glucose 96 mg/dL 70-105 Potassium 3.9 mmol/L 3.5-5.0 Sodium 135 mmol/L 135-145 BUN/Creatinine Ratio 12.5 8-20 Creatinine 1.2 mg/dL 0.5-1.4 Comp Metabolic Panel 08/07/2005 [facility] Over Creatinine 1.00 [phone] Anion Gap 8.0 mmol/L 2-11 82 Albumin/Globulin Ratio 1.5 1-3 Albumin 4.4 GM/DL 3.6-5.4 Alkaline Phosphatase 82 U/L 39-117 Alt (SGPT) 33 U/L 17-63 Ast (Sgot) 25 U/L 12-42 BUN 17 mg/dL 6-24 Calcium 9.7 mg/dL 8.7-10.2 Chloride 99 mmol/L Low 101-111 Co2 (Carbon Dioxide) 30.0 mmol/L 22-32 Globulin 3.0 GM/DL 2-4 Glucose 98 mg/dL 70-105 Potassium 4.3 mmol/L 3.5-5.0 Sodium 137 mmol/L 135-145 Bilirubin Total 0.4 mg/dL 0.4-1.5 Total Protein 7.4 GM/DL 6.2-8.1 BUN/Creatinine Ratio 17.0 8-20 Creatinine 1.0 mg/dL 0.5-1.4 Laboratory test 08/07/2005 [facility] TSH 3.65 MIU/ML 0.34-5.60 finding [phone] CBC With Electronic 08/07/2005 [facility] White Blood 8.8 CUMM 4.8- 10.8 Diff [phone] Count Abs Basophils 0 0-0.2 Abs Eosinophils 0.1 0-0.6 Absolute Neutrophil Count 5.6 1.5-7.7 Abs Lymphs 2.3 1.0-4.8 Abs Mononuclear 0.8 0-0.8 Basophil % 0.5 % 0-2 Hematocrit 43 % 42-52 Hemoglobin 15.0 g/dL 14.0-18.0 Eosinophil % 0.8 % 0-6 Gran % 64.0 % 38-83 Lymph % 25.8 % 20-45 Mean Corpuscular HGB Cone 35 g/dL 32-36 Mean Corpuscular Hemoglob 31 pg 27-31 Mean Corpuscular Volume 90 um3 80-94 Mean Platelet Volume 8.9 um3 7.4-10.4 Mononuclear % 8.9 % 1-9 Platelet Count 253 CUMM 150-450 Red Cell Count 4.81 CUMM 4.6-6.2 Redcell Distribution WDTH 14 % 10.5-15 CBC With Electronic 08/29/2004 [facility] White Blood 5.2 CUMM 4.8- 10.8 Diff [phone] Count Abs Basophils 0 0-0.2 Abs Eosinophils 0.1 0-0.6 Abs Grans 3.0 1.5-7.7 Abs Lymphs 1.6 1.0-4.8 Abs Mononuclear 0.5 0-0.8 Basophil % 0.3 % 0-2 Hematocrit 41 % Low 42-52 Hemoglobin 14.2 g/dL 14.0-18.0 Eosinophil % 2.1 % 0-6 Gran % 57.4 % 38-83 Lymph % 29.9 % 20-45 Mean Corpuscular HGB Cone 34 g/dL 32-36 Mean Corpuscular Hemoglob 31 pg 27-31 Mean Corpuscular Volume 90 um3 80-94 Mean Platelet Volume 8.4 um3 7.4-10.4 Mononuclear % 10.3 % High 1-9 Platelet Count 219 CUMM 150-450 Red Cell Count 4.60 CUMM 4.6-6.2 Redcell Distribution WDTH 14 % 10.5-15 Comp Metabolic Panel 08/29/2004 [facility] Anion Gap 9.0 mmol/L 2- 11 83 [phone] Albumin/Globulin Ratio 1.4 1-3 Albumin 3.8 GM/DL 3.6-5.4 Alkaline Phosphatase 76 U/L 39-117 Alt (SGPT) 44 U/L 17-63 Ast (Sgot) 35 U/L 12-42 BUN 12 mg/dL 6-24 Calcium 9.0 mg/dL 8.7-10.2 Chloride 101 mmol/L 101-111 Co2 (Carbon Dioxide) 29.0 mmol/L 22-32 Creatinine 0.9 mg/dL 0.5-1.4 Globulin 2.8 GM/DL 2-4 Glucose 101 mg/dL 70-105 Potassium 3.9 mmol/L 3.5-5.0 Sodium 139 mmol/L 135-145 Bilirubin Total 0.6 mg/dL 0.4-1.5 Total Protein 6.6 GM/DL 6.2-8.1 BUN/Creatinine Ratio 13.3 8-20 Lipid Profile 08/29/2004 [facility] Cholesterol 131 mg/dL Less Than 84 (Trig/Chol/HDL) [phone] 200 Triglyceride 71 mg/dL 40-200 High Density Lipoprotein 34 mg/dL Low 40-60 85 Low Density Lipoprotein 83 mg/dL Less Than 100 86 Cholesterol/HDL Ratio 3.85 AVERAGE 1-4.97 Lipid Profile 02/29/2004 [facility] Cholesterol/HDL 4.00 1-4.97 (Trig/Chol/HDL) [phone] Ratio AVERAGE Cholesterol 220 mg/dL High Less Than 200 87 Triglyceride 122 mg/dL 40-200 High Density Lipoprotein 55 mg/dL 40-60 Low Density Lipoprotein 141 mg/dL High Less Than 100 88 Laboratory test finding 02/29/2004 [facility] Alt (SGPT) 27 U/L 17- 63 [phone] Lipid Profile 04/03/2003 [facility] Cholesterol/HDL 4.73 (Trig/Chol/HDL) [phone] Ratio Cholesterol 189 89 Triglyceride 143 High Density Lipoprotein 40 Low Density Lipoprotein 120 High 90 Laboratory test finding 04/03/2003 [facility] Alt (SGPT) 26 [phone] 1 void, clear, yellow 2 Because ethnic data is not always readily available, this report includes an eGFR for both -Americans and non- Americans. The National Kidney Disease Education Program (NKDEP) does not endorse the use of the MDRD equation for patients that are not between the ages of 18 and 70, are , have extremes of body size, muscle mass, or nutritional status, or are non- or non-. According to the National Kidney Foundation, irrespective of diagnosis, the stage of the disease is based on the level of kidney function: Stage Description GFR(mL/min/1.73 m(2)) 1 Kidney damage with normal or decreased GFR 90 2 Kidney damage with mild decrease in GFR 60-89 3 Moderate decrease in GFR 30-59 4 Severe decrease in GFR 15-29 5 Kidney failure <15 (or dialysis) 3 FASTING 12 HOUR 4 Desirable: <150 Borderline High: 150-199 High: 200-499 Very High: >500 5 Desirable: <200 Borderline High: 200-239 High: >239 6 Low: <40 Desirable: 40-60 High: >60 7 Desirable: <100 Near Optimal: 100-129 Borderline High: 130-159 High: 160-189 Very High: >189 8 Desirable <150 Borderline high 150-199 High 200-499 Very High >500 9 Desirable <200 Borderline high 200-239 High >239 10 Low <40 Desirable: 40-60 High: >60 11 Desirable: <100 mg/dL Near Optimal: 100-129 mg/dL Borderline High: 130-159 mg/dL High: 160-189 mg/dL Very High: >189 mg/dL 12 FASTING 12 HOUR 13 Because ethnic data is not always readily available, this report includes an eGFR for both -Americans and non- Americans. The National Kidney Disease Education Program (NKDEP) does not endorse the use of the MDRD equation for patients that are not between the ages of 18 and 70, are , have extremes of body size, muscle mass, or nutritional status, or are non- or non-. According to the National Kidney Foundation, irrespective of diagnosis, the stage of the disease is based on the level of kidney function: Stage Description GFR(mL/min/1.73 m(2)) 1 Kidney damage with normal or decreased GFR 90 2 Kidney damage with mild decrease in GFR 60-89 3 Moderate decrease in GFR 30-59 4 Severe decrease in GFR 15-29 5 Kidney failure <15 (or dialysis) 14 Because ethnic data is not always readily available, this report includes an eGFR for both -Americans and non- Americans. The National Kidney Disease Education Program (NKDEP) does not endorse the use of the MDRD equation for patients that are not between the ages of 18 and 70, are , have extremes of body size, muscle mass, or nutritional status, or are non- or non-. According to the National Kidney Foundation, irrespective of diagnosis, the stage of the disease is based on the level of kidney function: Stage Description GFR(mL/min/1.73 m(2)) 1 Kidney damage with normal or decreased GFR 90 2 Kidney damage with mild decrease in GFR 60-89 3 Moderate decrease in GFR 30-59 4 Severe decrease in GFR 15-29 5 Kidney failure <15 (or dialysis) 15 FASTING 12 HOUR 16 Desirable <150 Borderline high 150-199 High 200-499 Very High >500 17 Desirable <200 Borderline high 200-239 High >239 18 Low <40 Desirable: 40-60 High: >60 19 Desirable: <100 mg/dL Near Optimal: 100-129 mg/dL Borderline High: 130-159 mg/dL High: 160-189 mg/dL Very High: >189 mg/dL 20 FASTING 12 HOUR 21 Because ethnic data is not always readily available, this report includes an eGFR for both -Americans and non- Americans. The National Kidney Disease Education Program (NKDEP) does not endorse the use of the MDRD equation for patients that are not between the ages of 18 and 70, are , have extremes of body size, muscle mass, or nutritional status, or are non- or non-. According to the National Kidney Foundation, irrespective of diagnosis, the stage of the disease is based on the level of kidney function: Stage Description GFR(mL/min/1.73 m(2)) 1 Kidney damage with normal or decreased GFR 90 2 Kidney damage with mild decrease in GFR 60-89 3 Moderate decrease in GFR 30-59 4 Severe decrease in GFR 15-29 5 Kidney failure <15 (or dialysis) 22 Desirable <150 Borderline high 150-199 High 200-499 Very High >500 23 Desirable <200 Borderline high 200-239 High >239 24 Low <40 Desirable: 40-60 High: >60 25 Desirable: <100 mg/dL Near Optimal: 100-129 mg/dL Borderline High: 130-159 mg/dL High: 160-189 mg/dL Very High: >189 mg/dL 26 FASTING 12 HOUR 27 FASTING 12 HOUR 28 FASTING 12 HOUR 29 FASTING 12 HOUR 30 RUN DATE: 09/10/14 [facility] LAB LIVE PAGE 1 RUN TIME: [address] [place], [place] [address] Specimen Inquiry Name: KEVIN TRAN Hero : [address]: Jason Styles MD Acct: [id number] Unit: [id number] AGE: 69 Location: [facility] Re09/09/14 SEX: M Status: REG REF SPEC: [id number] MARYSE: 09/09/14-[address]: Jason Styles MD REQ: [id number] RECD: 09/09/14-1223 STATUS: BRITTANIE MONTES DR: Fernandez Alexandre MD _ ORDERED: LEVEL IV/3 FINAL DIAGNOSIS 1. Colon, mid right, biopsy: -- Tubular adenoma. -- No high grade dysplasia or malignancy. 2. Colon, distal right, biopsies: -- Tubular adenoma. -- No high grade dysplasia or malignancy. 3. Colon, proximal transverse, biopsies: -- Tubular adenoma. -- No high grade dysplasia or malignancy. CLINICAL HISTORY Screening colonoscopy with usual bowel habit - every day to twice a day with no blood POST-OPERATIVE DIAGNOSIS Screening colonoscopy to cecum - T lift - 3 nodules. Left diverticulosis, 3 right polyps. 5 years GROSS DESCRIPTION 1. The specimen is received in formalin labeled, Biopsy Mid Right Colon Nodule, and consists of a 0.8 x 0.5 x 0.2 cm aggregate of multiple calero-pink irregular soft tissue fragments, which is submitted entirely in one cassette. 2. The specimen is received in formalin labeled, Biopsy Distal Right Colon Nodule, and CONTINUED ON NEXT PAGE * ML=Testing performed at Main Lab DEPARTMENT OF PATHOLOGY, [facility] [employer] [place] [address] Denilson Lu M.D. Director [facility] # [id number] RUN DATE: 09/10/14 [facility] LAB LIVE PAGE 2 RUN TIME: 8679 [facility] [employer] [place], [place] [address] Specimen Inquiry Patient: KEVIN TRAN Hero [id number] (Continued) GROSS DESCRIPTION (Continued) GROSS DESCRIPTION (Continued) consists of two calero-pink irregular soft tissue fragments averaging 0.4 x 0.3 x 0.2 cm, which are submitted entirely in one cassette. 3. The specimen is received in formalin labeled, Biopsy Proximal Transverse Colon Nodule, and consists of two calero-pink irregular soft tissue fragments measuring 0.2 x 0.2 x 0.1 cm in 0.4 x 0.2 x 0.2 cm, which are submitted entirely in one cassette. Signed (signature on file) Denilson Lu MD [id number] END OF REPORT * ML=Testing performed at Main Lab DEPARTMENT OF PATHOLOGY, [address] [place] [address] Denilson Lu M.D. Director [facility] # [id number] 31 Because ethnic data is not always readily available, this report includes an eGFR for both -Americans and non- Americans. The National Kidney Disease Education Program (NKDEP) does not endorse the use of the MDRD equation for patients that are not between the ages of 18 and 70, are , have extremes of body size, muscle mass, or nutritional status, or are non- or non-. According to the National Kidney Foundation, irrespective of diagnosis, the stage of the disease is based on the level of kidney function: Stage Description GFR(mL/min/1.73 m(2)) 1 Kidney damage with normal or decreased GFR 90 2 Kidney damage with mild decrease in GFR 60-89 3 Moderate decrease in GFR 30-59 4 Severe decrease in GFR 15-29 5 Kidney failure <15 (or dialysis) 32 FASTING 12 HOUR 33 Desirable <150 Borderline high 150-199 High 200-499 Very High >500 34 Desirable <200 Borderline high 200-239 High >239 35 Low <40 Desirable: 40-60 High: >60 36 Desirable <100 Near Optimal 100-129 Borderline high 130-159 High 160-189 Very High >189 37 FASTING 12 HOUR 38 HDL Interpretation: Undesirable: High Risk: Less than 40 MG/DL Desirable: Low Risk: Greater than 60 MG/DL 39 LDL Interpretation: Low Risk Optimal Level: LDL Less than 100 MG/DL Near or Above Optimal: LDL 100-129 MG/DL Borderline High Risk: LDL 130-159 MG/DL High Risk: LDL 160-189 MG/DL Very High Risk: LDL Greater than 189 MG/DL 40 FASTING 12 HOUR 41 Because ethnic data is not always readily available, this report includes an eGFR for both -Americans and non- Americans. The National Kidney Disease Education Program (NKDEP) does not endorse the use of the MDRD equation for patients that are not between the ages of 18 and 70, are , have extremes of body size, muscle mass, or nutritional status, or are non- or non-. According to the National Kidney Foundation, irrespective of diagnosis, the stage of the disease is based on the level of kidney function: Stage Description GFR(mL/min/1.73 m(2)) 1 Kidney damage with normal or decreased GFR 90 2 Kidney damage with mild decrease in GFR 60-89 3 Moderate decrease in GFR 30-59 4 Severe decrease in GFR 15-29 5 Kidney failure <15 (or dialysis) 42 ---- RUN DATE: 12/21/11 [facility] NMI LIVE PAGE 1 RUN TIME: 1400 Specimen Inquiry RUN USER: INTERFACE -- Name: KEVIN TRAN Status: REG REF Re12/20/11 Age/Sex: 66/M Unit#: [id number] Location: [address] [place] [address]. : 47 -- Specimen: [id number] SOUT Spec Date:12/20/11 Dr: Jason Styles MD Spec Type: SURGICAL P Received:12/20/11-1340 Copies to: Fernandez Alexandre MD SPECIMEN ESOPHAGOGASTRIC JUNCTION BIOPSIES HISTORY POST-OP DIAGNOSIS: Hiatal hernia. Gastroesophageal reflux disease. CLINICAL INFORMATION: Reflux disease. GROSS DESCRIPTION The specimen is received in formalin labelled Kevin HeroLynette Tran, Biopsy EG Junction, and consists of multiple calero soft tissue fragments measuring 0.6 x 0.2 x 0.1 cm. Submitted entirely, one cassette. DIAGNOSIS GE junction, biopsy: A. Gastroesophageal junction mucosa with mild reflux esophagitis. B. Reactive glandular epithelial changes with inflammation. C. No goblet cell metaplasia or dysplasia identified. Signed Electronically by: DENILSON LU MD 12/21/11 9996 -- -- DEPARTMENT OF PATHOLOGY, [address] [place] [address] [facility] Permit #[id number] Justin Mcnulty M.D. Turf Manager Dir favio -- 43 RUN DATE: 12/21/11 [facility] NMI LIVE PAGE 1 RUN TIME: 5587 Specimen Inquiry RUN USER: INTERFACE Name: KEVIN TRAN Status: REG REF Re12/20/11 Age/Sex: 66/M Unit#: [id number] Location: [address] [place], [place] [address]O.B. : 47 SPEC #: [id number] MARYSE: 12/20/11 STATUS: COMP REQ #: [id number] RECD: 12/20/11 [facility] DR: Jason Styles MD SOURCE: CLOTEST ENTR: 12/20/[address]: Bettie CISNEROS,Fernandez [facility]: ORDERED: CLOTEST ACT WKST: MISC 12/21/11 #1 Procedure Result Verified Site > CLOTEST Final 12/21/11- 822 ML CLOTEST NEGATIVE - [facility] Permit #[id number] [facility] Dates [facility] [address] DEPARTMENT OF PATHOLOGY, [facility] DATES [place], [place] [address] [facility] Permit #[id number] Denilson Lu M.D. Director Anand Farrell M.D. [employer] 44 CHOLESTEROL INTERPRETATION: Desirable: Less than 200 MG/DL Borderline-High Risk: 200-239 MG/DL High-Risk: 240 MG/DL and over 45 HDL INTERPRETATION: Undesirable: High Risk: Less than 40 MG/DL Desirable: Low Risk: Greater than 60 MG/DL 46 LDL INTERPRETATION: Low Risk Optimal Level: LDL Less than 100 MG/DL Near or Above Optimal: LDL 100-129 MG/DL Borderline High Risk: LDL 130-159 MG/DL High Risk: LDL 160-189 MG/DL Very High Risk: LDL Greater than 189 MG/DL 47 Anion gap measurement may be of limited value in the presence of any alkalosis, especially in a combined acid base disorder. . 48 Because ethnic data is not always readily available, this report includes an eGFR for both -Americans and non- Americans. The National Kidney Disease Education Program (NKDEP) does not endorse the use of the MDRD equation for patients that are not between the ages of 18 and 70, are , have extremes of body size, muscle mass, or nutritional status, or are non- or non-. According to the National Kidney Foundation, irrespective of diagnosis, the stage of the disease is based on the level of kidney function: Stage Description GFR(mL/min/1.73 m(2)) 1 Kidney damage with normal or decreased GFR 90 2 Kidney damage with mild decrease in GFR 60-89 3 Moderate decrease in GFR 30-59 4 Severe decrease in GFR 15-29 5 Kidney failure <15 (or dialysis) 49 ---- RUN DATE: 06/28/10 [facility] NMI LIVE PAGE 1 RUN TIME: 1428 Specimen Inquiry RUN USER: INTERFACE -- Name: KEVIN TRAN#: [id number] Status: REG REF Re06/27/10 Age/Sex: 64/M Unit#: [id number] Location: [facility] : 47 -- Specimen: [id number] SOUT Spec Date: 06/27/[address] [facility] [address]: Fernandez irvin MD Spec Type: SURGICAL P Received: 06/27/10-6993 Copies to: SPECIMEN 2 MM. PUNCH BIOPSY OF SURROUNDING EDGE OF LESION EXCISION OF ELONGATED KERATOTIC PLUG FROM LEFT EAR HISTORY PRE-OP DIAGNOSIS: Dermatoses, other specified CLINICAL INFORMATION: Present several months before 03/2010. Removed with liquid nitrogen then. Has grown back an approximately 3 mm. wide keratotic plu g which projects above the surface. GROSS DESCRIPTION The specimen is received in formalin labelled Kevin Tran, and consists of multiple calero-brown fragments measuring 0.6 x 0.3 x 0.2 cm. Submitted entirely, one cassette. DIAGNOSIS Skin, 2 mm. punch biopsy of surrounding edge of lesion: Inflamed verruca vulgaris. Signed Electronically by: DENILSON LU MD 06/28/10 1426 -- -- DEPARTMENT OF PATHOLOGY, [address] [place] [address] [facility] Permit #[id number] Denilson Lu M.D. Director Anand Farrell M.D. Turf Manager Dir favio -- 50 THERAPEUTIC TARGET FOR THE TREATMENT OF DIABETES MELLITUS PATIENTS IS <7% HBA1C, AND IN SELECTIVE PATIENTS <6.0%. PLEASE REFER TO [place] [employer]ATION DIABETIC CARE GUIDELINES FOR FURTHER INFORMATION. 51 CHOLESTEROL INTERPRETATION: Desirable: Less than 200 MG/DL Borderline-High Risk: 200-239 MG/DL High-Risk: 240 MG/DL and over 52 HDL INTERPRETATION: Undesirable: High Risk: Less than 40 MG/DL Desirable: Low Risk: Greater than 60 MG/DL 53 LDL INTERPRETATION: Low Risk Optimal Level: LDL Less than 100 MG/DL Near or Above Optimal: LDL 100-129 MG/DL Borderline High Risk: LDL 130-159 MG/DL High Risk: LDL 160-189 MG/DL Very High Risk: LDL Greater than 189 MG/DL 54 Anion gap measurement may be of limited value in the presence of any alkalosis, especially in a combined acid base disorder. . 55 Note change in reference range as of 01/16/08. The change was based on recommendations from the [place] [employer]. 56 Because ethnic data is not always readily available, this report includes an eGFR for both -Americans and non- Americans. The National Kidney Disease Education Program (NKDEP) does not endorse the use of the MDRD equation for patients that are not between the ages of 18 and 70, are , have extremes of body size, muscle mass, or nutritional status, or are non- or non-. According to the National Kidney Foundation, irrespective of diagnosis, the stage of the disease is based on the level of kidney function: Stage Description GFR(mL/min/1.73 m(2)) 1 Kidney damage with normal or decreased GFR 90 2 Kidney damage with mild decrease in GFR 60-89 3 Moderate decrease in GFR 30-59 4 Severe decrease in GFR 15-29 5 Kidney failure <15 (or dialysis) 57 Anion gap measurement may be of limited value in the presence of any alkalosis, especially in a combined acid base disorder. . 58 Note change in reference range as of 01/16/08. The change was based on recommendations from the [place] [employer]. 59 Please note change in reference range effective 07 . 60 Because ethnic data is not always readily available, this report includes an eGFR for both -Americans and non- Americans. The National Kidney Disease Education Program (NKDEP) does not endorse the use of the MDRD equation for patients that are not between the ages of 18 and 70, are , have extremes of body size, muscle mass, or nutritional status, or are non- or non-. According to the National Kidney Foundation, irrespective of diagnosis, the stage of the disease is based on the level of kidney function: Stage Description GFR(mL/min/1.73 m(2)) 1 Kidney damage with normal or decreased GFR 90 2 Kidney damage with mild decrease in GFR 60-89 3 Moderate decrease in GFR 30-59 4 Severe decrease in GFR 15-29 5 Kidney failure <15 (or dialysis) 61 CHOLESTEROL INTERPRETATION: Desirable: Less than 200 MG/DL Borderline-High Risk: 200-239 MG/DL High-Risk: 240 MG/DL and over 62 HDL INTERPRETATION: Undesirable: High Risk: Less than 40 MG/DL Desirable: Low Risk: Greater than 60 MG/DL 63 LDL INTERPRETATION: Low Risk Optimal Level: LDL Less than 100 MG/DL Near or Above Optimal: LDL 100-129 MG/DL Borderline High Risk: LDL 130-159 MG/DL High Risk: LDL 160-189 MG/DL Very High Risk: LDL Greater than 189 MG/DL 64 Note change in reference range as of 01/16/08. The change was based on recommendations from the [place] [employer]. 65 Interpretation: 10-24 (mild to moderate deficiency) -- REFERENCE VALUE -- 25-HYDROXY D TOTAL (D2+D3) Optimum levels in the normal population are 25-80 Test Performed by: [facility] Dpt of Lab Med and Pathology [address] [place] [address] Plier Worker: Juvenal Merino III, M.D. 66 Anion gap measurement may be of limited value in the presence of any alkalosis, especially in a combined acid base disorder. . 67 Note change in reference range as of 01/16/08. The change was based on recommendations from the [place] [employer]. 68 Please note change in reference range effective 07 . 69 Because ethnic data is not always readily available, this report includes an eGFR for both -Americans and non- Americans. The National Kidney Disease Education Program (NKDEP) does not endorse the use of the MDRD equation for patients that are not between the ages of 18 and 70, are , have extremes of body size, muscle mass, or nutritional status, or are non- or non-. According to the National Kidney Foundation, irrespective of diagnosis, the stage of the disease is based on the level of kidney function: Stage Description GFR(mL/min/1.73 m(2)) 1 Kidney damage with normal or decreased GFR 90 2 Kidney damage with mild decrease in GFR 60-89 3 Moderate decrease in GFR 30-59 4 Severe decrease in GFR 15-29 5 Kidney failure <15 (or dialysis) 70 CHOLESTEROL INTERPRETATION: Desirable: Less than 200 MG/DL Borderline-High Risk: 200-239 MG/DL High-Risk: 240 MG/DL and over 71 HDL INTERPRETATION: Undesirable: High Risk: Less than 40 MG/DL Desirable: Low Risk: Greater than 60 MG/DL 72 LDL INTERPRETATION: Low Risk Optimal Level: LDL Less than 100 MG/DL Near or Above Optimal: LDL 100-129 MG/DL Borderline High Risk: LDL 130-159 MG/DL High Risk: LDL 160-189 MG/DL Very High Risk: LDL Greater than 189 MG/DL 73 ---- RUN DATE: 07/29/08 [facility] NMI LIVE PAGE 1 RUN TIME: 1511 Specimen Inquiry RUN USER: INTERFACE -- [id number] Status: REG REF Re07/27/08 Age/Sex: 62/M Unit#: [id number] Location: [address] [place] [address]. : 47 -- Specimen: [id number] SOUT Spec Date: 07/27/[address]: Jason joy MD Spec Type: SURGICAL P Received: 07/28/08 Copies to: Fernandez Alexandre MD SPECIMEN 1) BIOPSY SIGMOID AT 16 CM. 2) BIOPSY PROXIMAL TRANSVERSE POLYP HISTORY POST-OP DIAGNOSIS: Two small polyps CLINICAL INFORMATION: Follow-up with history of colon polyps; positive [facility] - second generation GROSS DESCRIPTION 1) The specimen is received in formalin labelled Kevin Tran, Biopsy Sigmoid Polyp at 10 cm., and consists of two fragments of calero-amos tissue, each measuring 0.4 x 0.4 x 0.3 cm. Submitted entirely in one cassette labelled 1. 2) The specimen is received in formalin labelled Kevin Tran, Biopsy Proximal Transverse Polyp, and consists of a few fragments of calero-brown tissue, ranging in size from minute to 0.3 x 0.3 x 0.2 cm. Submitted entirely in one cassette labelled 2. DIAGNOSIS 1. Sigmoid, 16 cm., biopsy: A) Tubular adenoma. B) No high grade dysplasia or malignancy. 2. Transverse colon, polyp, biopsy: Hyperplastic polyp. Signed Electronically by: DENILSON LU MD 07/29/08 1511 -- -- DEPARTMENT OF PATHOLOGY, [address] [place] [address] [facility] Permit #[id number] Denilson Lu M.D. Director Anand Farrell M.D. Turf Manager Dir favio -- 74 CHOLESTEROL INTERPRETATION: Desirable: Less than 200 MG/DL Borderline-High Risk: 200-239 MG/DL High-Risk: 240 MG/DL and over 75 HDL INTERPRETATION: Undesirable: High Risk: Less than 40 MG/DL Desirable: Low Risk: Greater than 60 MG/DL 76 LDL INTERPRETATION: Low Risk Optimal Level: LDL Less than 100 MG/DL Near or Above Optimal: LDL 100-129 MG/DL Borderline High Risk: LDL 130-159 MG/DL High Risk: LDL 160-189 MG/DL Very High Risk: LDL Greater than 189 MG/DL 77 Anion gap measurement may be of limited value in the presence of any alkalosis, especially in a combined acid base disorder. . 78 Please note change in reference range effective 07 . 79 Classification: Desirable . 80 CALCULATED LDL APPROXIMATES THE VALUE OF A DIRECT LDL MEASUREMENT. Classification: Near or above optimal . 81 Anion gap measurement may be of limited value in the presence of any alkalosis, especially in a combined acid base disorder. . 82 Anion gap measurement may be of limited value in the presence of any alkalosis, especially in a combined acid base disorder. . 83 Anion gap measurement may be of limited value in the presence of any alkalosis, especially in a combined acid base disorder. . 84 Classification: Desirable . 85 Classification: Low . 86 CALCULATED LDL APPROXIMATES THE VALUE OF A DIRECT LDL MEASUREMENT. Classification: Optimal Level . 87 Classification: Borderline High . 88 CALCULATED LDL APPROXIMATES THE VALUE OF A DIRECT LDL MEASUREMENT. Classification: Borderline High . 89 Classification: Desirable . 90 CALCULATED LDL APPROXIMATES THE VALUE OF A DIRECT LDL MEASUREMENT. Classification: Near or above optimal . Procedures Date Code Description Status 02/27/2017 69760 Electrocardiogram Complete Completed 10/27/2015 00931 Electrocardiogram Complete Completed 10/16/2014 93062 Electrocardiogram Complete Completed 09/11/2014 18713 SC/Im Injections Completed 09/11/2014 26203 Injection Tendon Origin/Insertion Completed 08/26/2014 81666194 Colonoscopy Completed 10/17/2013 25524 Electrocardiogram Complete Completed 10/14/2012 39187 Electrocardiogram Complete Completed 07/03/2011 94124 Electrocardiogram Complete Completed 11/02/2010 14284 Destruction Of Skin Lesions Up To 14 Flat Completed Warts/Molluscum Contag 10/12/2010 30837 Destruction Of Skin Lesions Up To 14 Flat Completed Warts/Molluscum Contag 09/23/2010 56662 Destruction Of Skin Lesions Up To 14 Flat Completed Warts/Molluscum Contag 09/05/2010 29690 Destruction Of Skin Lesions Up To 14 Flat Completed Warts/Molluscum Contag 08/17/2010 92178 Destruction Of Skin Lesions Up To 14 Flat Completed Warts/Molluscum Contag 08/03/2010 01520 Destruction Of Skin Lesions Up To 14 Flat Completed Warts/Molluscum Contag 06/27/2010 62936 Biopsy Skin Lesion Single Completed 04/05/2010 59087 Destruction Of Skin Lesions Up To 14 Flat Completed Warts/Molluscum Contag 06/18/2009 99211 Electrocardiogram Complete Completed 12/28/2008 23695 X-Ray Ribs Two Views Completed 12/28/2008 25979 X-Ray Chest Two Views Completed 06/16/2008 39959 Electrocardiogram Complete Completed 10/16/2006 52387 Electrocardiogram Complete Completed 03/03/2004 72373 Osteopathic Manipulative Treatment 1 Or 2 Body Region Completed Encounters Type Date Location Provider Dx Diagnosis Office Visit 04/03/2018 Main Office Fernandez Alexandre, F41.9 Anxiety disorder, 4:30p M.D. unspecified G25.81 Restless legs syndrome Office Visit 03/26/2018 9:45a Main Office Fernandez Alexandre, F41.9 Anxiety disorder, M.D. unspecified F34.1 Dysthymic disorder G31.84 Mild cognitive impairment, so stated K21.9 Gastro-esophageal reflux disease without esophagitis Office Visit 02/26/2018 1:30p Main Office Fernandez Alexandre, F41.9 Anxiety disorder, M.D. unspecified F34.1 Dysthymic disorder G31.84 Mild cognitive impairment, so stated I10 Essential (primary) hypertension Office Visit 01/29/2018 11:15a Main Office Fernandez Alexandre F41.9 Anxiety disorder, M.D. unspecified G31.84 Mild cognitive impairment, so stated Z23 Encounter for immunization Z41.8 Encntr for oth proc for purpose oth [facility] Office Visit 12/31/2017 11:00a Main Office Fernandez Alexandre, F41.9 Anxiety disorder, M.D. unspecified F34.1 Dysthymic disorder I10 Essential (primary) hypertension G25.81 Restless legs syndrome Office Visit 11/07/2017 2:15p Main Office Yong Ness, I10 Essential ( primary) D.O. hypertension F34.1 Dysthymic disorder F41.9 Anxiety disorder, unspecified G25.81 Restless legs syndrome E78.00 Pure hypercholesterolemia, unspecified K21.9 Gastro-esophageal reflux disease without esophagitis Z71.89 Other specified counseling Office Visit 08/31/2017 10:00a Main Office Fernandez Alexandre, R73.01 Impaired fasting M.D. glucose I10 Essential (primary) hypertension F34.1 Dysthymic disorder F41.9 Anxiety disorder, unspecified G25.81 Restless legs syndrome E78.00 Pure hypercholesterolemia, unspecified K21.9 Gastro-esophageal reflux disease without esophagitis Z23 Encounter for immunization L21.9 Seborrheic dermatitis, unspecified Office Visit 04/30/2017 10:15a Main Office Fernandez Alexandre, I10 Essential (primary) M.D. hypertension F34.1 Dysthymic disorder F41.9 Anxiety disorder, unspecified G25.81 Restless legs syndrome K21.9 Gastro-esophageal reflux disease without esophagitis E78.00 Pure hypercholesterolemia, unspecified L21.9 Seborrheic dermatitis, unspecified Z79.899 Other exterminator (current) drug therapy Office Visit 04/04/2017 2:45p Main Office Fernandez Alexandre, M54.2 Cervicalgia M.D. Office Visit 02/27/2017 10:15a Main Office Fernandez Alexandre, I10 Essential (primary) M.D. hypertension F34.1 Dysthymic disorder F41.9 Anxiety disorder, unspecified G25.81 Restless legs syndrome K21.9 Gastro-esophageal reflux disease without esophagitis E78.00 Pure hypercholesterolemia, unspecified Z23 Encounter for immunization Z41.8 Encntr for oth proc for purpose oth than [facility] Z79.899 Other exterminator (current) drug therapy Office Visit 08/28/2016 11:00a Main Office Fernandez Alexandre, R73.01 Impaired fasting M.D. glucose F34.1 Dysthymic disorder F41.9 Anxiety disorder, unspecified I10 Essential (primary) hypertension E78.00 Pure hypercholesterolemia, unspecified K21.9 Gastro-esophageal reflux disease without esophagitis G25.81 Restless legs syndrome Office Visit 04/28/2016 12:55p Main Office Fernandez Alexandre, F34.1 Dysthymic disorder M.D. F41.9 Anxiety disorder, unspecified G25.81 Restless legs syndrome I10 Essential (primary) hypertension E78.00 Pure hypercholesterolemia, unspecified R73.01 Impaired fasting glucose Office Visit 01/28/2016 11:00a Main Office Fernandez Alexandre, I10 Essential (primary) M.D. hypertension K21.9 Gastro-esophageal reflux disease without esophagitis G25.81 Restless legs syndrome F34.1 Dysthymic disorder F41.9 Anxiety disorder, unspecified Z23 Encounter for immunization Office Visit 10/27/2015 10:45a Main Office Fernandez Alexandre, I10 Essential (primary) M.D. hypertension R73.01 Impaired fasting glucose K21.9 Gastro-esophageal reflux disease without esophagitis G25.81 Restless legs syndrome E78.0 Pure hypercholesterolemia F34.1 Dysthymic disorder R07.9 Chest pain, unspecified Office Visit 08/25/2015 9:15a Main Office Fernandez Alexandre, F34.1 Dysthymic disorder Justin F41.9 Anxiety disorder, unspecified Office Visit 08/04/2015 5:00p Main Office Fernandez Alexandre F34.1 Dysthymic disorder Justin F41.9 Anxiety disorder, unspecified Office Visit 06/28/2015 9:15a Main Office Fernandez Alexandre F34.1 Dysthymic disorder M.DLynette F41.9 Anxiety disorder, unspecified K21.9 Gastro-esophageal reflux disease without esophagitis G25.81 Restless legs syndrome I10 Essential (primary) hypertension R73.01 Impaired fasting glucose E78.0 Pure hypercholesterolemia Z23 Encounter for immunization Z41.8 Encntr for oth proc for purpose oth [facility] Office Visit 03/26/2015 11:00a Main Office Fernandez Alexandre F34.1 Dysthymic disorder Justin F41.9 Anxiety disorder, unspecified Office Visit 03/15/2015 12:55p Main Office Fernandez Alexandre M.D. R49.0 Dysphonia K21.9 Gastro-esophageal reflux disease without esophagitis F34.1 Dysthymic disorder F41.9 Anxiety disorder, unspecified Office Visit 03/05/2015 11:15a Main Office Fernandez Alexandre F34.1 Dysthymic disorder Justin F41.9 Anxiety disorder, unspecified K21.9 Gastro-esophageal reflux disease without esophagitis Office Visit 02/22/2015 3:30p Main Office Negirto Alexandre1.Cecil Gastro- esophageal Justin Presley reflux disease without esophagitis F34.1 Dysthymic disorder Office Visit 02/02/2015 9:30a Main Office Fernandez Alexandre, 300.00 Anxiety State M.DLynette Unspec 300.4 Dysthymic Disorder 333.94 Restless Leg Syndrome 401.1 Hypertension Benign Office Visit 11/30/2014 9:30a Main Office Fernandez Alexandre, 300.00 Anxiety State M.DLynette Unspec 300.4 Dysthymic Disorder 333.94 Restless Leg Syndrome 401.1 Hypertension Benign 530.81 Esophageal Reflux v03.82 Streptococcus Pneumoniae Vaccination Spec Other v07.2 Prophylactic Immunotherapy Office Visit 10/16/2014 8:55a Main Office Fernandez Alexandre, 790.21 Impaired Fasting M.D. Glucose 401.1 Hypertension Benign 530.81 Esophageal Reflux 333.94 Restless Leg Syndrome 300.00 Anxiety State Unspec 300.4 Dysthymic Disorder 883.0 Open Wound Finger(S) W/O Complication V58.32 Encounter For Removal Of Sutures Office Visit 10/12/2014 10:15a Main Office Fernandez Alexandre, 883.0 Open Wound Finger(S) M.D. W/O Complication 300.4 Dysthymic Disorder 300.00 Anxiety State Unspec V58.32 Encounter For Removal Of Sutures Office Visit 10/08/2014 11:30a Main Office Yong Ness, 300.4 Dysthymic Disorder D.O. 300.00 Anxiety State Unspec Office Visit 10/02/2014 11:30a Main Office Mane Webb 300.4 Dysthymic Disorder Maria De Jesus HerreraDLynette 300.00 Anxiety State Unspec Office Visit 09/30/2014 11:15a Main Office Fernandez Alexandre, 300.4 Dysthymic Disorder M.D. 300.00 Anxiety State Unspec 883.0 Open Wound Finger(S) W/O Complication Office Visit 09/25/2014 2:30p Main Office Fernandez Alexandre, 300.4 Dysthymic Disorder M.D. 300.00 Anxiety State Unspec Office Visit 09/11/2014 11:30a Main Office Fernandez Alexandre, 719.41 Pain Joint M.D. Shoulder Region 726.10 Bursae & Tendon Disorders Shoulder Region Unspec Office Visit 06/29/2014 10:15a Main Office Fernandez Alexandre, 300.4 Dysthymic Disorder M.D. 300.00 Anxiety State Unspec Office Visit 05/18/2014 11:15a Main Office Fernandez Alexandre, 401.1 Hypertension Benign M.D. 300.4 Dysthymic Disorder 300.00 Anxiety State Unspec Office Visit 04/17/2014 4:30p Main Office Fernandez Alexandre, 401.1 Hypertension Benign M.D. 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 401.1 Hypertension Benign 300.4 Dysthymic Disorder 333.94 Restless Leg Syndrome 790.21 Impaired Fasting Glucose 272.0 Hypercholesterolemia Pure V12.72 History Personal Colonic Polyps Office Visit 04/18/2013 10:00a Main Office Fernandez Alexandre, 401.1 Hypertension Benign M.D. 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 790.21 Impaired Fasting Glucose 300.4 Dysthymic Disorder 530.81 Esophageal Reflux 333.94 Restless Leg Syndrome 272.0 Hypercholesterolemia Pure 843.9 Sprains & Strains Hip & Thigh Unspec Site Office Visit 04/29/2012 2:15p Main Office Fernandez Alexandre, 789.00 Pain Abdominal M.D. Unspec Site Office Visit 04/16/2012 9:45a Main Office Fernandez Alexandre, 300.4 Dysthymic Disorder M.D. 530.81 Esophageal Reflux 333.94 Restless Leg Syndrome 401.1 Hypertension Benign 272.0 Hypercholesterolemia Pure V75.9 Screening Examination Infectious Disease Unspec 790.21 Impaired Fasting Glucose 789.03 Pain Abdominal Right Lower Quadrant 789.04 Pain Abdominal Left Lower Quadrant Office Visit 04/05/2012 11:15a Main Office Fernandez Alexandre, 789.03 Pain Abdominal M.D. Right Lower Quadrant 789.04 Pain Abdominal Left Lower Quadrant 789.64 Tenderness Abdominal Left Lower Quadrant V04.81 Need For Prophylactic Vaccination & Inoculation/Influenza V07.2 Prophylactic Immunotherapy Office Visit 01/09/2012 9:15a Main Office Fernandez Alexandre, 530.81 Esophageal Reflux M.D. 789.04 Pain Abdominal Left Lower Quadrant 789.64 Tenderness Abdominal Left Lower Quadrant 562.11 Diverticulitis Colon W/O Hemorrhage v05.8 Single Disease Spec Other Vaccination & Inoculation v07.2 Prophylactic Immunotherapy Office Visit 11/24/2011 11:30a Main Office Fernandez Alexandre, 789.64 Tenderness M.D. Abdominal Left Lower Quadrant 789.04 Pain Abdominal Left Lower Quadrant 562.11 Diverticulitis Colon W/O Hemorrhage 536.8 Stomach Dyspepsia & Other Spec Disorders Of Function 787.02 Nausea Alone 530.81 Esophageal Reflux Office Visit 11/17/2011 11:30a Main Office Fernandez Alexandre, 789.04 Pain Abdominal M.D. Left Lower Quadrant 789.03 Pain Abdominal Right Lower Quadrant 789.64 Tenderness Abdominal Left Lower Quadrant 562.11 Diverticulitis Colon W/O Hemorrhage Office Visit 10/02/2011 1:15p Main Office Fernandez Alexandre, 536.8 Stomach Dyspepsia M.D. & Other Spec Disorders Of Function 787.02 Nausea Alone 530.81 Esophageal Reflux 782.1 Rash & Other Nonspec Skin Eruption V03.82 Streptococcus Pneumoniae Vaccination Spec Other V07.2 Prophylactic Immunotherapy Office Visit 08/25/2011 9:15a Main Office Fernandez Alexandre, 782.1 Rash & Other M.D. Nonspec Skin Eruption Office Visit 07/03/2011 4:15p Main Office Fernandez Alexandre, 787.02 Nausea Alone M.D. 536.8 Stomach Dyspepsia & Other Spec Disorders Of Function 530.81 Esophageal Reflux 728.84 Diastasis Muscle 333.94 Restless Leg Syndrome 300.00 Anxiety State Unspec 300.4 Dysthymic Disorder 790.21 Impaired Fasting Glucose 401.1 Hypertension Benign 268.9 Vitamin D Deficiency Unspec 272.0 Hypercholesterolemia Pure Office Visit 08/03/2010 10:15a Main Office Fernandez Alexandre, 401.1 Hypertension Benign M.D. 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 Spec Office Visit 04/05/2010 10:00a Main Office Fernandez Alexandre, 401.1 Hypertension Benign M.D. 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 300.00 Anxiety State Unspec 333.94 Restless Leg Syndrome Office Visit 12/03/2009 10:15a Main Office Fernandez Alexandre, 300.4 Dysthymic Disorder M.D. 300.00 Anxiety State Unspec 333.94 Restless Leg Syndrome 388.30 Tinnitus Unspecified 401.1 Hypertension Benign 272.0 Hypercholesterolemia Pure 790.21 Impaired Fasting Glucose Office Visit 08/02/2009 10:45a Main Office Fernandez Alexandre, 300.4 Dysthymic Disorder M.D. 300.00 Anxiety State Unspec 388.30 Tinnitus Unspecified 333.94 Restless Leg Syndrome Office Visit 06/18/2009 8:55a Main Office Fernandez Alexandre, 300.00 Anxiety State M.D. Unspec 300.4 Dysthymic Disorder 401.1 Hypertension Benign 272.0 Hypercholesterolemia Pure 790.21 Impaired Fasting Glucose Office Visit 05/15/2009 10:30a Main Office Fernandez Alexandre, 300.00 Anxiety State M.D. Unspec 300.4 Dysthymic Disorder Office Visit 05/03/2009 10:45a Main Office Fernandez Alexandre, 300.4 Dysthymic Disorder M.D. 300.00 Anxiety State Unspec 787.02 Nausea Alone Office Visit 04/21/2009 2:30p Main Office Fernandez Alexandre 300.4 Dysthymic Disorder M.D. 300.00 Anxiety State Unspec Office Visit 04/19/2009 9:30a Main Office Fernandez Alexandre, 300.4 Dysthymic Disorder M.D. 536.8 Stomach Dyspepsia & Other Spec Disorders Of Function 787.02 Nausea Alone Office Visit 04/09/2009 10:45a Main Office Fernandez Alexandre, 780.79 Malaise And M.D. Fatigue Other 300.4 Dysthymic Disorder 536.8 Stomach Dyspepsia & Other Spec Disorders Of Function 268.9 Vitamin D Deficiency Unspec Office Visit 03/09/2009 1:45p Main Office Fernandez Alexandre, 536.8 Stomach Dyspepsia M.D. & Other Spec Disorders Of Function 300.4 Dysthymic Disorder 780.79 Malaise And Fatigue Other 729.1 Myalgia & Myositis Unspec 333.94 Restless Leg Syndrome Office Visit 12/31/2008 12:55p Main Office Mane Herrera, 786.50 Pain Chest M.D. Unspec 536.8 Stomach Dyspepsia & Other Spec Disorders Of Function Office Visit 12/28/2008 4:45p Main Office Fernandez Alexandre, 786.50 Pain Chest M.D. Unspec 536.8 Stomach Dyspepsia & Other Spec Disorders Of Function Office Visit 12/16/2008 8:55a Main Office Fernandez Alexandre, 401.1 Hypertension Benign M.D. 272.0 Hypercholesterolemia Pure 790.21 Impaired Fasting Glucose 300.4 Dysthymic Disorder 388.9 Ear Disorder Unspec Office Visit 11/26/2008 4:00p Main Office Mane Herrera M.D. 786.2 Cough 466.0 Bronchitis Acute Office Visit 09/04/2008 4:00p Main Office Fernandez Alexandre, 719.47 Pain Joint Ankle M.D. & Foot Office Visit 06/23/2008 4:45p Main Office Fernandez Alexandre, 787.02 Nausea Alone M.D. 789.66 Tenderness Abdominal Epigastic 300.4 Dysthymic Disorder Office Visit 06/16/2008 4:00p Main Office Fernandez Alexandre, 401.1 Hypertension Benign M.D. 272.0 Hypercholesterolemia Pure 300.4 Dysthymic Disorder V76.51 Special Screening For Malignant Neoplasms Colon Office Visit 11/25/2007 5:00p Main Office Fernandez Alexandre, 401.1 Hypertension Benign M.D. 272.0 Hypercholesterolemia Pure 719.41 Pain Joint Shoulder Region Office Visit 05/15/2007 4:00p Main Office Fernandez Alexandre, 401.1 Hypertension Benign M.D. 272.0 Hypercholesterolemia Pure 300.4 Dysthymic Disorder 780.79 Malaise And Fatigue Other V65.49 Counseling Other Spec Office Visit 10/16/2006 2:30p Main Office Fernandez Alexandre, 401.1 Hypertension Benign M.D. 272.0 Hypercholesterolemia Pure 300.4 Dysthymic Disorder 780.79 Malaise And Fatigue Other Office Visit 09/10/2006 2:30p Main Office Bettie 726.32 Epicondylitis Justin Presley Lateral 780.79 Malaise And Fatigue Other 300.4 Dysthymic Disorder Office Visit 03/21/2006 4:00p Main Office Fernandez Alexandre, 300.4 Dysthymic Disorder M.D. 272.0 Hypercholesterolemia Pure 401.1 Hypertension Benign Office Visit 09/20/2005 4:00p Main Office Fernandez Alexandre, 300.4 Dysthymic Disorder M.D. 780.79 Malaise And Fatigue Other 401.1 Hypertension Benign Office Visit 08/07/2005 1:15p Main Office Fernandez Alexandre, 401.1 Hypertension Benign M.D. 780.79 Malaise And Fatigue Other 300.4 Dysthymic Disorder Office Visit 06/30/2005 2:30p Main Office Fernandez Alexandre, 300.4 Dysthymic Disorder Maria De JesusDLynette 607.84 Impotence Organic Origin 536.8 Stomach Dyspepsia & Other Spec Disorders Of Function Office Visit 12/19/2004 4:15p Main Office Fernandez Alexandre 536.8 Stomach Dyspepsia M.D. & Other Spec Disorders Of Function 726.71 Bursitis Or Tendinitis Achilles Office Visit 10/26/2004 4:45p Main Office Fernandez Alexandre, 536.8 Stomach Dyspepsia M.D. & Other Spec Disorders Of Function Office Visit 10/17/2004 4:15p Main Office Fernandez Alexandre 536.8 Stomach Dyspepsia M.D. & Other Spec Disorders Of Function Office Visit 10/11/2004 4:00p Main Office Fernandez Alexandre, 726.71 Bursitis Or M.D. Tendinitis Achilles 536.8 Stomach Dyspepsia & Other Spec Disorders Of Function Office Visit 09/09/2004 4:00p Main Office Fernandez Alexandre, 726.71 Bursitis Or M.D. Tendinitis Achilles 401.1 Hypertension Benign 272.0 Hypercholesterolemia Pure Office Visit 03/10/2004 11:00a Main Office Yuriy Olvera M.D. 724.2 Lumbago 530.81 Esophageal Reflux 401.1 Hypertension Benign 272.4 Hyperlipidemia Other Unspec 278.00 Obesity Unspec 300.4 Dysthymic Disorder Office Visit 03/03/2004 4:15p Main Office carlenemaria teresaleann 724.2 Lumbago 739.3 Lesion Nonallopathic Lumbar Region Not Elsewhere Class 739.4 Lesion Nonallopathic Sacral Region Not Elsewhere Class Office Visit 06/08/2003 11:30a Main Office Fernandez Alexandre, 553.1 Hernia Umbilical M.D. Office Visit 01/20/2003 2:30p Main Office Fernandez Alexandre, 723.1 Cervicalgia Justin 719.41 Pain Joint Shoulder Region 530.81 Esophageal Reflux Plan of Treatment Future Appointment(s):04/15/2018 4:15 pm - Fernandez Alexandre M.D. at Main Uwn[facility]pi1605/31/2018 9:30 am - Fernandez Alexandre M.D. at Main Bhedbv7404/03/2018 - Fernandez Alexandre M.D.F41.9 Anxiety disorder, unspecifiedNew Medication: Gabapentin 300 mg - 1 pill tonight then 1 pill twice daily for 1 day then 1 pill 3x/day; for restlessness and anxietyFollow up:RTO 04/12-04/15G25.81 Restless legs syndrome
--- NOTE | 2018-04-07 14:42 | ED ---
Psychiatric Complaint - HPI Summary HPI Summary: Pt is a 72 y/o male who presents to the ED c/o anxiety. He felt anxious this morning and took his medications, but he feels like they did not work. Pt denies any SI or HI. He states he is getting sick of the panic attacks. Hes not sure of any particular cause for his anxiety. Pt denies any weight gain or loss. As per , he sleeps way too much. PMHx depression and anxiety. He states he's never been to therapy. - History Of Current Complaint Chief Complaint: EDPsychosocial Time Seen by Provider: 04/07/18 14:38 Hx Obtained From: Patient, Family/Drafter Cartographic - Onset/Duration: Gradual Onset, Lasting Hours - This morning, Still Present Timing: Constant Character: Anxious Aggravating Factor(s): Nothing Alleviating Factor(s): Nothing Associated Signs And Symptoms: Positive: Sleep Disturbance - Sleeping too much Related History: Positive For: Prior Psychiatric Issues - Depression/anxiety Has Suicidal: Denies: Thoughts Has Homicidal: Denies: Thoughts - Allergies/Home Medications Allergies/Adverse Reactions: Allergies Allergy/AdvReac Type Severity Reaction Status Date / Time No Known Allergies Allergy Verified 09/07/14 12:07 PMH/Surg Hx/FS Hx/Imm Hx Cardiovascular History: Reports: Hx Hypercholesterolemia, Hx Hypertension GI History: Reports: Hx Gastroesophageal Reflux Disease Psychiatric History: Reports: Hx Anxiety, Hx Depression - Surgical History Surgery Procedure, Year, and Place: appendectomy. umbilical hernia Infectious Disease History: No Infectious Disease History: Denies: Hx Clostridium Difficile, Hx Hepatitis, Hx Human Immunodeficiency Virus (HIV), Hx of Known/Suspected MRSA, Hx Shingles, Hx Tuberculosis, Hx Known/ Suspected VRE, Hx Known/Suspected VRSA, History Other Infectious Disease, Traveled Outside the [place] in Last 30 Days - Family History Known Family History: Positive: Diabetes - Social History Alcohol Use: None Hx Substance Use: No Substance Use Type: Reports: None Hx Tobacco Use: Yes Smoking Status (MU): Former Smoker Have You Smoked in the Last Year: No Review of Systems Negative: Fever Positive: Anxious All Other Systems Reviewed And Are Negative: Yes Physical Exam - Summary Physical Exam Summary: Appearance: Well appearing, no pain distress Skin: warm, dry, reflects adequate perfusion Head/face: normal Eyes: EOMI, VALERIE ENT: mucous membranes moist Neck: supple, non-tender Respiratory: CTA, breath sounds present Cardiovascular: RRR, pulses symmetrical Abdomen: non-tender, soft Bowel Sounds: present Musculoskeletal: normal, strength/ROM intact Neuro: normal, sensory motor intact, A&Ox3 Psych: mildly anxious, sad appearing, conversant Triage Information Reviewed: Yes Vital Signs On Initial Exam: Initial Vitals Temp Pulse Resp BP Pulse Ox 98.1 F 72 18 128/87 98 04/07/18 13:57 04/07/18 13:57 04/07/18 13:57 04/07/18 13:57 04/07/18 13:57 Vital Signs Reviewed: Yes Diagnostics - Vital Signs Vital Signs Temp Pulse Resp BP Pulse Ox 04/07/18 13:57 98.1 F 72 18 128/87 98 - Laboratory Lab Statement: Any lab studies that have been ordered have been reviewed, and results considered in the medical decision making process. Course/Dx - Course Course Of Treatment: Patient with long standing history of anxiety and depression who recently was started on gabapentin. He has not felt that this has made him any better and perhaps worse. He had discontinued this on his own. He was given intramuscular Ativan here for his anxiety and will follow up closely with his primary care physician. He is encouraged to inquire about other mood stabilizers such as Depakote. - Differential Dx/Clinical Impression Differential Diagnosis/HQI/PQRI: Positive: Anxiety, Bipolar Disorder, Depression , Other - Medication reaction, medication noncompliance Provider Diagnosis: Depression, Anxiety Discharge - Sign-Out/Discharge Documenting (check all that apply): Patient Departure - Discharge - Discharge Plan Condition: Improved Disposition: HOME Patient Education Materials: Anxiety (ED) Referrals: Fernandez Alexandre MD [Primary Care Provider] - [facility] [place] [[facility], APPLICATION, OTHER] - Additional Instructions: Call to schedule with mental health. They often have walk-in appointments to be seen for therapy. Call your doctor first thing in the morning to inform him of your symptoms. At them know that you're not taking the gabapentin and inquire about other medications such as Depakote. Return with worsening, suicidal thoughts, worse or other concerns as discussed. - Billing Disposition and Condition Condition: IMPROVED Disposition: Home - Attestation Statements Document Initiated by Scribe: Yes Documenting Scribe: Mecca Booker Provider For Whom Scribe is Documenting (Include Credential): Addison Story MD Scribe Attestation: IMecca, scribed for Addison Story MD on 04/07/18 at 1659. Scribe Documentation Reviewed: Yes Provider Attestation: The documentation as recorded by the scribe, Mecca Booker accurately reflects the service I personally performed and the decisions made by me, Addison Story MD
[2018-04-07] MEDS ORDERED: LORazepam INJ* 2 MG/ML 1 ML VIAL IM ONE (14:46)
[2018-04-07 14:55] VITALS: BP 133/89
== END 2018-04-07 14:53 | disposition home or self-care (01) ==
LOC: ED 13:44
DX: F32.9 Major depressive disorder, single episode, unspecified (principal); F41.9 Anxiety disorder, unspecified; Z87.891 Personal history of nicotine dependence
CPT/HCPCS: 96372; 99282; J2060

== ENCOUNTER 2018-06-18 16:18 | Emergency (ER) | payer MEDICARE ==
--- NOTE | 2018-06-18 17:37 | ED ---
GI/ HPI - HPI Summary HPI Summary: 72-year-old male presents with inability to urinate today. He states he has no pain. He states that he just hasn't had to urinate today. He states he only went twice a day. He state he has in pressure feeling that he has to go. He states he tried to urinate and is unable to do so. No fevers. No dysuria. He states that he did urinate couple hours ago but only meniscal amount. He states his been having issues for the past month with frequency and decreased stream. He states he does not have a difficulty starting to urinate for the past month. He was worked up by his primary and had a normal prostate.. He denies any flank pain. No abdominal pain. This has never happened before. - History of Current Complaint Chief Complaint: EDUrogenitalProblems Time Seen by Provider: 06/18/18 16:50 Stated Complaint: UROGENITAL PROBLEMS Pain Intensity: 0 - Allergy/Home Medications Allergies/Adverse Reactions: Allergies Allergy/AdvReac Type Severity Reaction Status Date / Time No Known Allergies Allergy Verified 06/18/18 16:25 PMH/Surg Hx/FS Hx/Imm Hx Endocrine/Hematology History: Denies: Hx Anticoagulant Therapy Cardiovascular History: Reports: Hx Hypercholesterolemia, Hx Hypertension GI History: Reports: Hx Gastroesophageal Reflux Disease Psychiatric History: Reports: Hx Anxiety, Hx Depression - Surgical History Surgery Procedure, Year, and Place: appendectomy. umbilical hernia Infectious Disease History: No Infectious Disease History: Denies: Hx Clostridium Difficile, Hx Hepatitis, Hx Human Immunodeficiency Virus (HIV), Hx of Known/Suspected MRSA, Hx Shingles, Hx Tuberculosis, Hx Known/ Suspected VRE, Hx Known/Suspected VRSA, History Other Infectious Disease, Traveled Outside the in Last 30 Days - Family History Known Family History: Positive: Diabetes - Social History Alcohol Use: None Hx Substance Use: No Substance Use Type: Reports: None Hx Tobacco Use: Yes Smoking Status (MU): Former Smoker Have You Smoked in the Last Year: No Review of Systems Negative: Fever Negative: Chest Pain Negative: Shortness Of Breath Positive: other - unable to urinate All Other Systems Reviewed And Are Negative: Yes Physical Exam Triage Information Reviewed: Yes Vital Signs On Initial Exam: Initial Vitals Temp Pulse Resp BP Pulse Ox 98.6 F 79 17 146/92 96 06/18/18 16:22 06/18/18 16:22 06/18/18 16:22 06/18/18 16:22 06/18/18 16:22 Vital Signs Reviewed: Yes Appearance: Positive: Well-Appearing Skin: Positive: Warm, Dry Head/Face: Positive: Normal Head/Face Inspection Eyes: Positive: Normal, Conjunctiva Clear ENT: Positive: Pharynx normal Respiratory/Lung Sounds: Positive: Clear to Auscultation, Breath Sounds Present Cardiovascular: Positive: Normal, RRR Abdomen Description: Positive: Nontender, Soft. Negative: CVA Tenderness (R), CVA Tenderness (L) Bowel Sounds: Positive: Present Musculoskeletal: Positive: Normal Neurological: Positive: Normal Psychiatric: Positive: Normal Diagnostics - Vital Signs Vital Signs Temp Pulse Resp BP Pulse Ox 06/18/18 16:22 98.6 F 79 17 146/92 96 - Laboratory Result Diagrams: 06/18/18 16:40 06/18/18 16:41 Lab Statement: Any lab studies that have been ordered have been reviewed, and results considered in the medical decision making process. GIGU Course/Dx - Course Course Of Treatment: 72 year old male presents with inability to void today. has had issues with weak stream for the past month. he states never had issues with voiding before. no dysuria, fever or flank pain. no pain. on exam abd soft nontender. patient did void 250cc in ED and had 250cc after voiding on bladder scan. creatine is a little elevated compared to previous. urine shows no infection. discussed will not place a catheter at this time and patient has no pain and is still able to urinate although is retaining some urine. will place on flomax and have follow up with urology. told if develops pain with inability to urinate to return for catheter placement. patient understand and agrees with plan. - Diagnoses Differential Diagnoses - Male: Prostatitis, Urinary Tract Infection, Other - urinary retention Provider Diagnoses: Urinary retention Discharge - Sign-Out/Discharge Documenting (check all that apply): Patient Departure - Discharge Plan Condition: Good Disposition: HOME Prescriptions: Tamsulosin CAP* [Flomax CAP*] 0.4 mg PO DAILY #14 cap Patient Education Materials: Urinary Retention in Men (ED) Referrals: Fernandez Alexandre MD [Primary Care Provider] - David Urena MD [Medical Doctor] - Additional Instructions: Follow up with urology start flomax daily, stand up slowly Return to ED if develop pain with complete inability to void, or any new or worsening symptoms - Billing Disposition and Condition Condition: GOOD Disposition: Home
[2018-06-18 17:45] LABS: ABS Basophils 0.1 10^3/ul (0-0.2); ABS Eosinophils 0.1 10^3/ul (0-0.6); ABS Lymphocytes 1.9 10^3/ul (1.0-4.8); ABS Monocytes 0.7 10^3/ul (0-0.8); ABS Neutrophils 6.7 10^3/ul (1.5-7.7); ABS Nucleated RBC 0 10^3/ul; Eosinophil % 0.7 %; Hematocrit 44 % (42-52); Hemoglobin 14.8 g/dl (14.0-18.0); Lymphocyte % 19.9 %; Mean Corpuscular HGB Conc 34 g/dl (31-36); Mean Corpuscular Hemoglobin 30 pg (27-31); Mean Corpuscular Volume 88 fL (80-94); Mean Platelet Volume 8.1 fL (7.4-10.4); Nucleated Red Blood Cells % 0; Platelet Count 236 10^3/ul (150-450); Red Blood Count 4.95 10^6/ul (4.00-5.40); Red Cell Distribution Width 14 % (10.5-15); White Blood Count 9.4 10^3/ul (3.5-10.8)
[2018-06-18 17:47] LABS: Urine Appearance Clear; Urine Bilirubin Negative (Negative); Urine Blood Negative (Negative); Urine Color Yellow; Urine Glucose Negative (Negative); Urine Ketones Negative (Negative); Urine Nitrite Negative (Negative); Urine Protein Negative (Negative); Urine Specific Gravity 1.006 (1.010-1.030); Urine Urobilinogen Negative (Negative)
[2018-06-18 17:58] LABS: ALT 18 U/L (7-52); AST 18 U/L (13-39); Albumin 4.8 g/dL (3.2-5.2); Albumin/Globulin Ratio 1.7 (1-3); Alkaline Phosphatase 53 U/L (34-104); Anion Gap 9 mmol/L (2-11); BUN/Creatinine Ratio 8.1 (8-20); Blood Urea Nitrogen 10 mg/dL (6-24); C Reactive Protein < 1.00 mg/L (<8.01); CO2 Carbon Dioxide 26 mmol/L (22-32); Calcium 9.6 mg/dL (8.6-10.3); Chloride 93 mmol/L (101-111); EGFR Non-African American 57.5 (>60); Globulin 2.8 g/dL (2-4); Glucose 108 mg/dL (70-100); Potassium 4.1 mmol/L (3.5-5.0); Sodium 128 mmol/L (135-145); Total Protein 7.6 g/dL (6.4-8.9)
[2018-06-18 18:34] VITALS: BP 143/71
== END 2018-06-18 18:33 | disposition home or self-care (01) ==
LOC: ED 16:18
DX: R33.9 Retention of urine, unspecified (principal); Z87.891 Personal history of nicotine dependence
CPT/HCPCS: 36415; 80053; 81003; 84153; 85025; 86140; 99282